=== PATIENT | female | born 1945 | race Caucasian/White ===

== ENCOUNTER 2021-08-19 09:00 | Inpatient (IN) ==
[2021-08-19] MEDS ORDERED: LACTATED RINGERS 1,000 ML IV SCH (11:30)
[2021-08-19] MEDS ORDERED: GLUCAGON 1 MG VIAL IM PRN (11:55)
[2021-08-19] MEDS ORDERED: NITROGLYCERIN SL 0.4 MG TABLET SL PRN (11:55)
[2021-08-19] MEDS ORDERED: CLORAZEPATE 3.75 MG TABLET PO PRN (11:55)
[2021-08-19] MEDS ORDERED: SODIUM CHLORIDE 0.9% 1,000 ML IV SCH (12:00)
[2021-08-19] MEDS ORDERED: DEXTROSE 10% 250 ML BAG IV PRN (12:10)
[2021-08-19] MEDS ORDERED: MORPHINE 4 MG/1 ML VIAL IV PRN (12:11)
[2021-08-19 14:50] LABS: Basophils # 0.1 10*3/uL (0.0-0.2); Eosinophils # 0.2 10*3/uL (0.0-0.87); Eosinophils % 2.6 % (0.00-10.9); Hematocrit 28.9 VOL% (35.7-47.0); Hemoglobin 9.1 GM/DL (12.0-16.0); Immature Granulocytes % 0.3 %; Immature Granulocytes Absolute 0.02 #; Lymphocytes # 2.2 10*3/uL (1.4-4.0); Lymphocytes % 32.5 % (21.3-54.2); Mean Corpuscular HGB Conc 31.5 GM/DL (32-36); Mean Corpuscular Volume 100.3 FL (87-102); Mean Platelet Volume 9.8 FL (9.6-12.0); Monocytes % 8.2 % (1.7-12.7); Neutrophils % 55.4 % (38.7-73.9); Platelet Count 155 T/CUMM (130-400); Red Blood Count 2.88 MC/CUMM (3.8-5.5); White Blood Count 6.8 T/CUMM (4-12)
[2021-08-19 15:11] LABS: Albumin 3.1 G/DL (3.4-5.0); Osmolality,Calculated 280.5 MOS/KG (273-304); Potassium 4.3 MMOL/L (3.5-5.1); Total Protein 7.1 G/DL (6.4-8.2)
[2021-08-19 15:16] LABS: Eosinophils 2 % (0-10); Lymphocytes 32 % (20-55); Segmented Neutrophils 58 % (50-85); Total Cells Counted 100
[2021-08-19 15:17] LABS: Platelet Estimate Adequate
[2021-08-19 15:18] LABS: Anisocytosis 1+
[2021-08-19] MEDS: INSULIN REGULAR 100 UNIT/ML SUBCUT SCH ×2 (15:42→20:50)
[2021-08-19] MEDS: CHLORHEXIDINE 4% SOLN 118 ML BOTTLE TOP SCH ×2 (16:50→20:50)
[2021-08-19] MEDS: CHLORHEXIDINE 0.12% ORAL RINSE 60 ML BOTTLE SWISH/SPIT SCH (20:50)
[2021-08-19] MEDS ORDERED: hydrALAZINE 20 MG/1 ML VIAL IV ONE (21:38)
[2021-08-20] MEDS ORDERED: hydrALAZINE 20 MG/1 ML VIAL IV ONE (00:18)
[2021-08-20] MEDS: CHLORHEXIDINE 4% SOLN 118 ML BOTTLE TOP SCH (04:15)
[2021-08-20] MEDS ORDERED: PAPAVERINE 60 MG/2 ML VIAL ONE (04:17)
[2021-08-20] MEDS ORDERED: VANCOMYCIN 1,000 MG VIAL ONE (04:17)
[2021-08-20] MEDS ORDERED: VANCOMYCIN 500 MG VIAL ONE (04:17)
[2021-08-20] MEDS ORDERED: CEFUROXIME INJ 1,500 MG in SODIUM CHLORIDE 0.9% 100 ML IV ONE (05:00)
[2021-08-20] MEDS ORDERED: DIAZEPAM 5 MG TABLET PO ONE (05:30)
[2021-08-20] MEDS ORDERED: FAMOTIDINE 20 MG TABLET PO ONE (05:30)
[2021-08-20] MEDS ORDERED: LACTATED RINGERS 1,000 ML IV SCH (05:30)
[2021-08-20] MEDS ORDERED: PHENYLEPHRINE DRIP 20 MG/250 ML PREMIX IV ONE (05:53)
[2021-08-20] MEDS ORDERED: SUFentanil 250 MCG/5 ML AMP ONE ×2 (05:53)
[2021-08-20] MEDS ORDERED: MIDAZOLAM 10 MG/2 ML VIAL ONE ×3 (05:53→08:27)
[2021-08-20] MEDS ORDERED: ETOMIDATE 40 MG/20 ML VIAL IV ONE (05:58)
[2021-08-20] MEDS ORDERED: VECURONIUM 10 MG VIAL IV ONE ×3 (05:59→09:32)
[2021-08-20] MEDS ORDERED: AMINOCAPROIC ACID 5,000 MG/20 ML VIAL ONE ×4 (06:00→06:01)
[2021-08-20] MEDS ORDERED: PHENYLEPHRINE DRIP 40 MG/250 ML PREMIX IV ONE (07:22)
[2021-08-20 07:32] LABS: ABG Base Excess 1.6 MMOL/L (-2.5-2.5); ABG HCO3 25.9 MMOL/L (20-26); ABG PCO2 32.7 MM HG (35-48); ABG PH 7.485 (7.35-7.45); ABG TCO2 22.6 MMOL/L (23-27); Glucose Heart Surgery 131 MG/DL (74-106); Hematocrit Heart Surgery 28.4 PERCENT (37-47); Hemoglobin Heart Surgery 9.2 G/DL (12.0-16.0); Ionized Calcium Arterial 1.17 MMOL/L (1.21-1.46); PCO2 Patient Temp Arterial 32.7 MMHG; PH Patient Temp Arterial 7.485; Patient Temperature 37 CELCIUS; Potassium Heart/CVR 3.6 MMOL/L (3.5-5.1); Sodium Heart/CVR 140 MMOL/L (135-145)
[2021-08-20 07:41] LABS: Bilirubin,Urine Negative (Negative); Blood, Urine Negative (Negative); Glucose,Urine (UA) Negative (Negative); Ketones,Urine 20 mg/dL (Negative); Mucus,Urine Occasional /LPF (Occasional); Nitrite,Urine Negative (Negative); Protein,Urine 100 MG/DL; RBC,Urine 4 /HPF (0-4); Squamous Epithelial Cell,Urine Occasional /HPF (0-10); Urine Appearance CLEAR (Clear); Urine Color Yellow (Yellow); Urine Specific Gravity 1.015 (1.001-1.035); Urine Urobilinogen < 2.0 EU/DL (<2.0)
[2021-08-20] MEDS ORDERED: NITROGLYCERIN DRIP 50 MG/250 ML BOTTLE IV ONE ×2 (07:44→11:46)
[2021-08-20] MEDS ORDERED: cefTRIAXone 1,000 MG VIAL ONE (07:52)
[2021-08-20] MEDS ORDERED: LIDOCAINE 2% 5 ML VIAL ONE ×2 (08:03→10:30)
[2021-08-20] MEDS ORDERED: SEVOFLURANE 1 UNIT/15 MINUTE INH ONE (08:27)
[2021-08-20] MEDS ORDERED: LACTATED RINGERS 1,000 ML IV ONE (08:35)
[2021-08-20] MEDS ORDERED: SODIUM CHLORIDE 0.9% 250 ML IV ONE (08:35)
[2021-08-20] MEDS ORDERED: SODIUM CHLORIDE 0.9% 1,000 ML IV ONE (08:35)
[2021-08-20] MEDS ORDERED: SODIUM CHLORIDE 0.9% 200 ML IV ONE (08:35)
[2021-08-20] MEDS ORDERED: HEPARIN/NACL 0.9% 2 UNITS/ML 1,000 UNIT/500 ML BAG IV ONE (08:41)
[2021-08-20 08:50] LABS: Hematocrit Heart Surgery 24.8 PERCENT (37-47); PCO2 Patient Temp Venous 28.9 MM HG; PH Patient Temp Venous 7.552; PO2 Patient Temp Venous 35.1 MM HG; Potassium Heart/CVR 4.5 MMOL/L (3.5-5.1); VBG Base Excess 3.4 MEQ/L (0-4); VBG HCO3 27.3 MEQ/L (24-28); VBG Oxygen Saturation 81.8 %; VBG PCO2 33.4 MMHG (41-51); VBG PH 7.506; VBG PO2 43.2 MMHG (17-40); VBG Total CO2 24.7 MMOL/L
[2021-08-20 09:21] LABS: Hematocrit Heart Surgery 25.8 PERCENT (37-47); Hemoglobin Heart Surgery 8.3 G/DL (12.0-16.0); PCO2 Patient Temp Venous 27.6 MM HG; PH Patient Temp Venous 7.561; PO2 Patient Temp Venous 35.1 MM HG; Potassium Heart/CVR 4.3 MMOL/L (3.5-5.1); VBG HCO3 26.9 MEQ/L (24-28); VBG Oxygen Saturation 81.9 %; VBG PCO2 31.9 MMHG (41-51); VBG PH 7.515; VBG PO2 43.2 MMHG (17-40); VBG Total CO2 23.9 MMOL/L
[2021-08-20] MEDS ORDERED: CALCIUM CHLORIDE 1,000 MG/10 ML VIAL IV ONE (09:21)
[2021-08-20 09:53] LABS: Hematocrit Heart Surgery 28.1 PERCENT (37-47); PH Patient Temp Venous 7.531; PO2 Patient Temp Venous 38.1 MM HG; Potassium Heart/CVR 4.4 MMOL/L (3.5-5.1); VBG Base Excess 3.5 MEQ/L (0-4); VBG HCO3 27.2 MEQ/L (24-28); VBG PH 7.531; VBG PO2 38.1 MMHG (17-40); VBG Total CO2 23.9 MMOL/L
[2021-08-20] MEDS ORDERED: AMIODARONE 150 MG/3 ML VIAL ONE (10:25)
[2021-08-20 10:27] LABS: ABG HCO3 26.3 MMOL/L (20-26); ABG PCO2 31.6 MM HG (35-48); ABG PH 7.502 (7.35-7.45); ABG TCO2 22.4 MMOL/L (23-27); Glucose Heart Surgery 237 MG/DL (74-106); Hematocrit Heart Surgery 30.9 PERCENT (37-47); Ionized Calcium Arterial 1.26 MMOL/L (1.21-1.46); PCO2 Patient Temp Arterial 31.6 MMHG; PH Patient Temp Arterial 7.502; Patient Temperature 37 CELCIUS; Potassium Heart/CVR 3.8 MMOL/L (3.5-5.1); Sodium Heart/CVR 133 MMOL/L (135-145)
[2021-08-20] MEDS ORDERED: DEXTROSE 5% KCL 20 MEQ 20 MEQ/1,000 ML BAG IV ONE (10:30)
[2021-08-20] MEDS ORDERED: methylPREDNISolone SOD SUC 1,000 MG/8 ML VIAL ONE (10:30)
[2021-08-20] MEDS ORDERED: PROTAMINE SULFATE 250 MG/25 ML VIAL IV ONE (10:30)
[2021-08-20] MEDS ORDERED: ALBUMIN 25% 25 GM/100 ML VIAL IV ONE (10:30)
[2021-08-20] MEDS ORDERED: MANNITOL 100 GM/500 ML BAG IV ONE (10:30)
[2021-08-20] MEDS ORDERED: MAGNESIUM SULFATE 5 GM/10 ML VIAL IV ONE (10:30)
[2021-08-20] MEDS ORDERED: SODIUM BICARBONATE 50 MEQ/50 ML VIAL IV ONE (10:31)
[2021-08-20] MEDS ORDERED: FUROSEMIDE 20 MG/2 ML VIAL ONE (10:31)
[2021-08-20] MEDS ORDERED: HEPARIN 10,000 UNIT/10 ML VIAL ONE (10:31)
[2021-08-20] MEDS ORDERED: DEXTROSE 10% 250 ML BAG IV PRN ×2 (10:52)
[2021-08-20] MEDS ORDERED: CHLORHEXIDINE 4% SOLN 118 ML BOTTLE TOP PRN (10:52)
[2021-08-20] MEDS ORDERED: ONDANSETRON 4 MG/2 ML VIAL IV PRN (10:52)
[2021-08-20] MEDS ORDERED: POTASSIUM CHLORIDE RIDER 10 MEQ/100 ML PREMIX IV PRN (10:52)
[2021-08-20] MEDS ORDERED: LACTATED RINGERS 250 ML IV PRN (10:52)
[2021-08-20] MEDS ORDERED: VECURONIUM 10 MG VIAL IV PRN ×2 (10:52)
[2021-08-20] MEDS ORDERED: MAGNESIUM SULF RIDER 4 GM/100 ML PREMIX IV PRN (10:52)
[2021-08-20] MEDS ORDERED: NITROPRUSSIDE 100 MG in DEXTROSE 5% 250 ML IV PRN (10:52)
[2021-08-20] MEDS ORDERED: CALCIUM CHLORIDE 1,000 MG/10 ML SYRINGE IV PRN (10:52)
[2021-08-20] MEDS ORDERED: ACETAMINOPHEN 650 MG SUPP RECTAL PRN (10:52)
[2021-08-20] MEDS ORDERED: MIDAZOLAM 10 MG/2 ML VIAL IV PRN (10:52)
[2021-08-20] MEDS ORDERED: INSULIN REGULAR 100 UNIT/ML IV ONE (10:52)
[2021-08-20] MEDS ORDERED: INSULIN REGULAR 100 UNIT/ML IV PRN (10:52)
[2021-08-20] MEDS ORDERED: MAGNESIUM SULF RIDER 2 GM/50 ML PREMIX IV PRN (10:52)
[2021-08-20] MEDS ORDERED: INSULIN REGULAR DRIP 100 ML IV SCH (11:00)
[2021-08-20] MEDS ORDERED: PROTAMINE SULFATE 50 MG/5 ML VIAL IV ONE (11:08)
[2021-08-20] MEDS: SODIUM CHLORIDE 0.45% 1,000 ML IV SCH ×2 (11:31)
[2021-08-20 11:33] LABS: Basophils % 0.4 % (0.0-0.8); Eosinophils % 0.2 % (0.00-10.9); Hemoglobin 10.8 GM/DL (12.0-16.0); Immature Granulocytes % 0.6 %; Immature Granulocytes Absolute 0.06 #; Lymphocytes # 0.7 10*3/uL (1.4-4.0); Lymphocytes % 6.8 % (21.3-54.2); Mean Corpuscular HGB Conc 33.8 GM/DL (32-36); Mean Corpuscular Volume 92.5 FL (87-102); Mean Platelet Volume 10.2 FL (9.6-12.0); Platelet Count 115 T/CUMM (130-400); Red Blood Count 3.46 MC/CUMM (3.8-5.5); Red Cell Distribution Width 13.8 % (9.3-17.3); White Blood Count 9.5 T/CUMM (4-12)
[2021-08-20 11:36] LABS: ABG HCO3 23.6 MMOL/L (20-26); ABG Oxygen Saturation 99.2 % (95-100); ABG PCO2 27.6 MM HG (35-48); ABG PH 7.549 (7.35-7.45); ABG PO2 470.2 MM HG (80-95); ABG TCO2 24.4 MMOL/L (23-27); Glucose Heart Surgery 204 MG/DL (74-106); Hemoglobin Heart Surgery 11.5 G/DL (12.0-16.0); Potassium Heart/CVR 3.5 MMOL/L (3.5-5.1)
[2021-08-20 11:42] LABS: INR 1.1; PT Patient Result 12.8 SECS (10.5-12.0)
[2021-08-20] MEDS: POTASSIUM CHLORIDE RIDER 20 MEQ/100 ML PREMIX IV PRN ×3 (11:48→22:40)
[2021-08-20 12:08] LABS: CKMB % 8.6 %
[2021-08-20 12:13] LABS: High Sensitive Troponin I* 9187.4 ng/L (0-54)
[2021-08-20 12:17] LABS: Albumin 2.6 G/DL (3.4-5.0); Bilirubin,Total 0.6 MG/DL (0.20-1.00); Osmolality,Calculated 277.1 MOS/KG (273-304); Potassium 3.6 MMOL/L (3.5-5.1); Total Protein 5.8 G/DL (6.4-8.2)
[2021-08-20 12:44] LABS: Lymphocytes 5 % (20-55); Poikilocytosis Few; Segmented Neutrophils 92 % (50-85); Total Cells Counted 100
[2021-08-20 12:45] LABS: Burr Cells Few; Platelet Estimate Adequate
[2021-08-20] MEDS: LACTATED RINGERS 1,000 ML IV PRN ×4 (13:00→18:21)
[2021-08-20 13:34] LABS: ABG Base Excess -0.4 MMOL/L (-2.5-2.5); ABG HCO3 22.6 MMOL/L (20-26); ABG PCO2 31.2 MM HG (35-48); ABG PH 7.477 (7.35-7.45); ABG PO2 278.3 MM HG (80-95); ABG TCO2 23.5 MMOL/L (23-27); Glucose Heart Surgery 125 MG/DL (74-106); Potassium Heart/CVR 3.5 MMOL/L (3.5-5.1)
[2021-08-20] MEDS ORDERED: NITROGLYCERIN DRIP 50 MG/250 ML BOTTLE IV PRN (13:48)
[2021-08-20] MEDS: ALBUMIN 5% 12.5 GM/250 ML VIAL IV PRN ×2 (14:00→14:16)
[2021-08-20 14:46] LABS: ABG Base Excess -0.4 MMOL/L (-2.5-2.5); ABG HCO3 24.1 MMOL/L (20-26); ABG Oxygen Saturation 99.8 % (95-100); ABG PCO2 32.9 MM HG (35-48); ABG PH 7.453 (7.35-7.45); Glucose Heart Surgery 98 MG/DL (74-106); Hematocrit Heart Surgery 29.2 PERCENT (37-47); Hemoglobin Heart Surgery 9.4 G/DL (12.0-16.0); Potassium Heart/CVR 4.2 MMOL/L (3.5-5.1)
[2021-08-20] MEDS: MIDAZOLAM 2 MG/2 ML VIAL IV PRN ×2 (15:55→17:41)
[2021-08-20] MEDS: INSULIN REGULAR 100 UNIT/ML SUBCUT SCH (15:58)
[2021-08-20] MEDS: CHLORHEXIDINE 0.12% ORAL RINSE 60 ML BOTTLE SWISH/SPIT SCH ×2 (15:58→20:44)
[2021-08-20] MEDS: PHENYLEPHRINE DRIP 40 MG/250 ML PREMIX IV PRN (16:10)
[2021-08-20 16:32] LABS: ABG Base Excess -1.1 MMOL/L (-2.5-2.5); ABG HCO3 22.3 MMOL/L (20-26); ABG Oxygen Saturation 98.3 % (95-100); ABG PH 7.461 (7.35-7.45); ABG TCO2 23.3 MMOL/L (23-27); Glucose Heart Surgery 119 MG/DL (74-106); Hemoglobin Heart Surgery 9.3 G/DL (12.0-16.0); Potassium Heart/CVR 4.2 MMOL/L (3.5-5.1)
[2021-08-20 16:33] LABS: VBG Base Excess -0.6 MEQ/L (0-4); VBG HCO3 23.3 MEQ/L (24-28); VBG PCO2 40.2 MMHG (41-51); VBG PH 7.389; VBG PO2 32.1 MMHG (17-40); VBG Total CO2 22.6 MMOL/L
[2021-08-20] MEDS: SODIUM CHLORIDE 0.9% 1,000 ML IV SCH (16:58)
[2021-08-20] MEDS: MORPHINE 10 MG/1 ML VIAL IV PRN (17:22)
[2021-08-20 18:03] LABS: ABG Base Excess -5.3 MMOL/L (-2.5-2.5); ABG Oxygen Saturation 98.6 % (95-100); ABG PCO2 38.2 MM HG (35-48); ABG PH 7.336 (7.35-7.45); ABG PO2 172.4 MM HG (80-95); ABG TCO2 21.1 MMOL/L (23-27); Glucose Heart Surgery 170 MG/DL (74-106); Hemoglobin Heart Surgery 12.1 G/DL (12.0-16.0); Potassium Heart/CVR 4.4 MMOL/L (3.5-5.1)
[2021-08-20] MEDS: CEFUROXIME INJ 1,500 MG in SODIUM CHLORIDE 0.9% 100 ML IV SCH (18:21)
[2021-08-20] MEDS ORDERED: FUROSEMIDE 40 MG/4 ML VIAL IV ONE ×3 (19:38→23:59)
[2021-08-20 19:45] LABS: ABG Base Excess -6.1 MMOL/L (-2.5-2.5); ABG HCO3 19.5 MMOL/L (20-26); ABG Oxygen Saturation 99.2 % (95-100); ABG PCO2 36.3 MM HG (35-48); ABG PH 7.331 (7.35-7.45); ABG TCO2 17.1 MMOL/L (23-27); Glucose Heart Surgery 171 MG/DL (74-106); Hematocrit Heart Surgery 36.9 PERCENT (37-47); Potassium Heart/CVR 4.4 MMOL/L (3.5-5.1)
[2021-08-20 20:21] LABS: CKMB % 8.1 %
[2021-08-20 20:25] LABS: High Sensitive Troponin I* 66623.2 ng/L (0-54)
[2021-08-20] MEDS ORDERED: DOBUTamine 500 MG/250 ML PREMIX IV PRN (20:55)
[2021-08-20 21:34] LABS: ABG Base Excess -4.9 MMOL/L (-2.5-2.5); ABG HCO3 20.7 MMOL/L (20-26); ABG Oxygen Saturation 97.8 % (95-100); ABG PCO2 40.5 MM HG (35-48); ABG PH 7.327 (7.35-7.45); ABG PO2 119.3 MM HG (80-95); Glucose Heart Surgery 161 MG/DL (74-106); Hemoglobin Heart Surgery 12.2 G/DL (12.0-16.0)
[2021-08-20] MEDS ORDERED: FUROSEMIDE INJ 100 MG in SODIUM CHLORIDE 0.9% 90 ML IV SCH (22:00)
[2021-08-20 22:36] LABS: ABG Base Excess -2.7 MMOL/L (-2.5-2.5); ABG HCO3 22.3 MMOL/L (20-26); ABG Oxygen Saturation 98.3 % (95-100); ABG PCO2 39.4 MM HG (35-48); ABG PO2 143.5 MM HG (80-95); ABG TCO2 23.5 MMOL/L (23-27); Glucose Heart Surgery 159 MG/DL (74-106); Hemoglobin Heart Surgery 11.2 G/DL (12.0-16.0); Potassium Heart/CVR 4.4 MMOL/L (3.5-5.1)
[2021-08-20 23:32] LABS: ABG Base Excess -2.1 MMOL/L (-2.5-2.5); ABG Oxygen Saturation 96.6 % (95-100); ABG PCO2 40.4 MM HG (35-48); ABG PH 7.373 (7.35-7.45); ABG PO2 95.1 MM HG (80-95); ABG TCO2 24.2 MMOL/L (23-27); Glucose Heart Surgery 156 MG/DL (74-106)
[2021-08-21 01:21] LABS: ABG Base Excess -2.3 MMOL/L (-2.5-2.5); ABG HCO3 22.5 MMOL/L (20-26); ABG Oxygen Saturation 97.9 % (95-100); ABG PCO2 45.1 MM HG (35-48); ABG PH 7.329 (7.35-7.45); ABG TCO2 21.7 MMOL/L (23-27); Glucose Heart Surgery 153 MG/DL (74-106); Hematocrit Heart Surgery 31.4 PERCENT (37-47); Hemoglobin Heart Surgery 10.2 G/DL (12.0-16.0); Potassium Heart/CVR 4.7 MMOL/L (3.5-5.1)
[2021-08-21] MEDS ORDERED: FUROSEMIDE 40 MG/4 ML VIAL IV ONE ×2 (02:00→14:13)
[2021-08-21] MEDS: LACTATED RINGERS 1,000 ML IV PRN (03:29)
[2021-08-21 04:01] LABS: ABG Base Excess -1.5 MMOL/L (-2.5-2.5); ABG HCO3 23.7 MMOL/L (20-26); ABG Oxygen Saturation 94.9 % (95-100); ABG PCO2 41.8 MM HG (35-48); ABG PH 7.372 (7.35-7.45); ABG PO2 80.1 MM HG (80-95); Glucose Heart Surgery 130 MG/DL (74-106); Hemoglobin Heart Surgery 10.3 G/DL (12.0-16.0); Potassium Heart/CVR 4.3 MMOL/L (3.5-5.1)
[2021-08-21 04:09] LABS: Basophils % 0.1 % (0.0-0.8); Hematocrit 29.1 VOL% (35.7-47.0); Hemoglobin 9.6 GM/DL (12.0-16.0); Immature Granulocytes % 0.6 %; Immature Granulocytes Absolute 0.06 #; Mean Corpuscular Volume 93.3 FL (87-102); Mean Platelet Volume 10.9 FL (9.6-12.0); Monocytes % 9.3 % (1.7-12.7); Platelet Count 80 T/CUMM (130-400); Red Blood Count 3.12 MC/CUMM (3.8-5.5); Red Cell Distribution Width 15.9 % (9.3-17.3); White Blood Count 10.9 T/CUMM (4-12)
[2021-08-21 04:33] LABS: Hypochromia Slight; Lymphocytes 10 % (20-55); Microcytosis Slight; Platelet Estimate Decreased; Segmented Neutrophils 84 % (50-85); Total Cells Counted 100
[2021-08-21 04:39] LABS: Albumin 2.6 G/DL (3.4-5.0); Bilirubin,Direct 0.13 MG/DL (0.0-0.20); Bilirubin,Total 0.5 MG/DL (0.20-1.00); Calcium 7.8 MG/DL (8.5-10.1); Osmolality,Calculated 281.5 MOS/KG (273-304); Potassium 4.4 MMOL/L (3.5-5.1); Total Protein 5.1 G/DL (6.4-8.2)
[2021-08-21] MEDS: POTASSIUM CHLORIDE RIDER 20 MEQ/100 ML PREMIX IV PRN (04:56)
[2021-08-21 05:23] LABS: CKMB % 11.9 %
[2021-08-21 05:27] LABS: High Sensitive Troponin I* > 125000 ng/L (0-54)
[2021-08-21] MEDS: CEFUROXIME INJ 1,500 MG in SODIUM CHLORIDE 0.9% 100 ML IV SCH ×3 (05:30→18:40)
[2021-08-21] MEDS: MORPHINE 10 MG/1 ML VIAL IV PRN (05:47)
[2021-08-21] MEDS: INSULIN REGULAR 100 UNIT/ML SUBCUT SCH ×4 (08:40→21:14)
[2021-08-21] MEDS ORDERED: LEVOFLOXACIN INJ 500 MG/100 ML PREMIX IV SCH (09:00)
[2021-08-21] MEDS: CHLORHEXIDINE 0.12% ORAL RINSE 60 ML BOTTLE SWISH/SPIT SCH ×2 (09:25→21:14)
[2021-08-21] MEDS: ASPIRIN EC 81 MG TABLET PO SCH (09:25)
[2021-08-21] MEDS: SODIUM CHLORIDE 0.45% 1,000 ML IV SCH ×2 (11:00)
[2021-08-21 11:59] LABS: High Sensitive Troponin I* > 125000 ng/L (0-54)
[2021-08-21] MEDS ORDERED: AMIODARONE INJ 150 MG in DEXTROSE 5% 100 ML IV ONE (12:28)
[2021-08-21] MEDS ORDERED: AMIODARONE INJ 450 MG in DEXTROSE 5% 241 ML IV SCH ×2 (12:30→19:30)
[2021-08-21] MEDS: PHENYLEPHRINE DRIP 40 MG/250 ML PREMIX IV PRN ×2 (13:30→18:40)
[2021-08-21] MEDS: SODIUM CHLORIDE 0.9% 1,000 ML IV SCH (16:30)
[2021-08-21 18:39] LABS: CKMB % 12.9 %; High Sensitive Troponin I* > 125000 ng/L (0-54)
[2021-08-22] MEDS ORDERED: FUROSEMIDE 40 MG/4 ML VIAL IV ONE
[2021-08-22] MEDS: PHENYLEPHRINE DRIP 40 MG/250 ML PREMIX IV PRN (00:20)
[2021-08-22 05:18] LABS: Basophils % 0.1 % (0.0-0.8); Hematocrit 27.5 VOL% (35.7-47.0); Hemoglobin 8.9 GM/DL (12.0-16.0); Immature Granulocytes % 0.7 %; Immature Granulocytes Absolute 0.07 #; Lymphocytes # 0.8 10*3/uL (1.4-4.0); Mean Corpuscular HGB Conc 32.4 GM/DL (32-36); Mean Corpuscular Volume 94.2 FL (87-102); Mean Platelet Volume 11.1 FL (9.6-12.0); Monocytes % 11.4 % (1.7-12.7); Neutrophils % 79.8 % (38.7-73.9); Platelet Count 66 T/CUMM (130-400); Red Blood Count 2.92 MC/CUMM (3.8-5.5); Red Cell Distribution Width 15.9 % (9.3-17.3); White Blood Count 9.7 T/CUMM (4-12)
[2021-08-22 05:34] LABS: Albumin 2.2 G/DL (3.4-5.0); Bilirubin,Direct 0.11 MG/DL (0.0-0.20); Bilirubin,Total 1.6 MG/DL (0.20-1.00); Calcium 7.6 MG/DL (8.5-10.1); Osmolality,Calculated 282.8 MOS/KG (273-304); Potassium 3.9 MMOL/L (3.5-5.1); Total Protein 5.4 G/DL (6.4-8.2)
[2021-08-22 05:44] LABS: Hypochromia 1+; Lymphocytes 3 % (20-55); Microcytosis 1+; Platelet Estimate Decreased; Segmented Neutrophils 90 % (50-85); Total Cells Counted 100
[2021-08-22] MEDS: POTASSIUM CHLORIDE RIDER 20 MEQ/100 ML PREMIX IV PRN ×2 (06:15→06:49)
[2021-08-22] MEDS: INSULIN REGULAR 100 UNIT/ML SUBCUT SCH ×4 (08:30→20:30)
[2021-08-22] MEDS: AMIODARONE 200 MG TABLET PO SCH ×2 (08:43→20:30)
[2021-08-22] MEDS: ASPIRIN EC 81 MG TABLET PO SCH (08:43)
[2021-08-22] MEDS: CHLORHEXIDINE 0.12% ORAL RINSE 60 ML BOTTLE SWISH/SPIT SCH ×3 (08:43→20:30)
[2021-08-22] MEDS: ALBUMIN 5% 12.5 GM/250 ML VIAL IV PRN (08:43)
[2021-08-22] MEDS ORDERED: LEVOFLOXACIN INJ 250 MG/50 ML PREMIX IV SCH (09:00)
[2021-08-22] MEDS ORDERED: ZALEPLON 5 MG CAPSULE PO PRN (09:08)
[2021-08-22] MEDS ORDERED: MAGNESIUM SULF RIDER 2 GM/50 ML PREMIX IV PRN (09:08)
[2021-08-22] MEDS ORDERED: ACETAMINOPHEN 325 MG TABLET PO PRN (09:08)
[2021-08-22] MEDS ORDERED: ONDANSETRON 4 MG/2 ML VIAL IV PRN (09:08)
[2021-08-22] MEDS ORDERED: MAGNESIUM SULF RIDER 4 GM/100 ML PREMIX IV PRN (09:08)
[2021-08-22] MEDS ORDERED: oxyCODONE/ACETAMINOPHEN 5-325 MG TABLET PO PRN (09:08)
[2021-08-22] MEDS ORDERED: SODIUM CHLOR 0.45% KCL 20 MEQ 20 MEQ/1,000 ML BAG IV SCH (09:08)
[2021-08-22] MEDS ORDERED: MAGNESIUM HYDROXIDE SUSP 30 ML UDCUP PO PRN (09:08)
[2021-08-22] MEDS ORDERED: DEXTROSE 10% 250 ML BAG IV PRN (09:08)
[2021-08-22] MEDS ORDERED: ALUMINUM/MAGNES/SIMETH MAX STR 30 ML UDCUP PO PRN (09:08)
[2021-08-22] MEDS ORDERED: GLUCAGON 1 MG VIAL IM PRN (09:08)
[2021-08-22] MEDS ORDERED: CARBOXYMETHYLCELLULOSE 1% OPH SOLN BOTH EYES PRN (09:18)
[2021-08-22] MEDS ORDERED: ALBUMIN 5% 12.5 GM/250 ML VIAL IV ONE (09:27)
[2021-08-22] MEDS: FERROUS SULFATE 325 MG TABLET PO SCH (09:45)
[2021-08-22] MEDS: GLIMEPIRIDE 2 MG TABLET PO SCH (09:45)
[2021-08-22] MEDS: DOCUSATE SODIUM 100 MG CAPSULE PO SCH (09:45)
[2021-08-22] MEDS: PANTOPRAZOLE 40 MG TABLET PO SCH (09:50)
[2021-08-22] MEDS: carBAMazepine 200 MG TABLET PO SCH (20:30)
[2021-08-23 05:05] LABS: Albumin 2.4 G/DL (3.4-5.0); Bilirubin,Direct 0.18 MG/DL (0.0-0.20); Bilirubin,Total 0.7 MG/DL (0.20-1.00); Osmolality,Calculated 280.7 MOS/KG (273-304); Potassium 4.1 MMOL/L (3.5-5.1); Total Protein 5.9 G/DL (6.4-8.2)
[2021-08-23 05:13] LABS: Basophils % 0.2 % (0.0-0.8); Hematocrit 29.3 VOL% (35.7-47.0); Hemoglobin 9.4 GM/DL (12.0-16.0); Immature Granulocytes Absolute 0.13 #; Lymphocytes # 0.9 10*3/uL (1.4-4.0); Lymphocytes % 6.9 % (21.3-54.2); Mean Corpuscular HGB Conc 32.1 GM/DL (32-36); Mean Corpuscular Volume 95.8 FL (87-102); Mean Platelet Volume 12.2 FL (9.6-12.0); Monocytes % 9.4 % (1.7-12.7); Neutrophils % 82.5 % (38.7-73.9); Platelet Count 83 T/CUMM (130-400); Red Blood Count 3.06 MC/CUMM (3.8-5.5); Red Cell Distribution Width 15.7 % (9.3-17.3); White Blood Count 13.3 T/CUMM (4-12)
[2021-08-23 05:47] LABS: Albumin 2.4 G/DL (3.4-5.0); Bilirubin,Direct 0.19 MG/DL (0.0-0.20); Bilirubin,Indirect 0.2 MG/DL (0.0-1.0); Bilirubin,Total 0.4 MG/DL (0.20-1.00); High Sensitive Troponin I* 93195.9 ng/L (0-54); Total Protein 5.8 G/DL (6.4-8.2)
[2021-08-23] MEDS ORDERED: FUROSEMIDE 40 MG/4 ML VIAL IV ONE (06:00)
[2021-08-23 06:20] LABS: Band Neutrophils 1 % (0-10); Hypochromia Slight; Lymphocytes 8 % (20-55); Platelet Estimate Decreased; Segmented Neutrophils 84 % (50-85); Total Cells Counted 100
[2021-08-23] MEDS: GLIMEPIRIDE 2 MG TABLET PO SCH (09:34)
[2021-08-23] MEDS: INSULIN REGULAR 100 UNIT/ML SUBCUT SCH ×4 (09:34→20:55)
[2021-08-23] MEDS: FUROSEMIDE 40 MG/4 ML VIAL IV SCH ×2 (10:09→19:09)
[2021-08-23] MEDS: carBAMazepine 200 MG TABLET PO SCH ×2 (10:13→20:56)
[2021-08-23] MEDS: CETIRIZINE 10 MG TABLET PO SCH (10:13)
[2021-08-23] MEDS: DOCUSATE SODIUM 100 MG CAPSULE PO SCH (10:13)
[2021-08-23] MEDS: ASPIRIN EC 81 MG TABLET PO SCH (10:13)
[2021-08-23] MEDS: PANTOPRAZOLE 40 MG TABLET PO SCH (10:13)
[2021-08-23] MEDS: AMIODARONE 200 MG TABLET PO SCH ×2 (10:13→20:56)
[2021-08-23] MEDS: LEVOFLOXACIN 250 MG TABLET PO SCH (10:14)
[2021-08-23] MEDS: CHLORHEXIDINE 0.12% ORAL RINSE 60 ML BOTTLE SWISH/SPIT SCH ×2 (10:14→20:56)
[2021-08-23] MEDS: FERROUS SULFATE 325 MG TABLET PO SCH (10:14)
[2021-08-24 05:20] LABS: Basophils % 0.2 % (0.0-0.8); Eosinophils % 0.2 % (0.00-10.9); Hematocrit 27.8 VOL% (35.7-47.0); Hemoglobin 8.8 GM/DL (12.0-16.0); Immature Granulocytes % 0.6 %; Immature Granulocytes Absolute 0.06 #; Lymphocytes # 0.9 10*3/uL (1.4-4.0); Lymphocytes % 9.6 % (21.3-54.2); Mean Corpuscular HGB Conc 31.7 GM/DL (32-36); Mean Corpuscular Volume 96.5 FL (87-102); Mean Platelet Volume 11.9 FL (9.6-12.0); Monocytes % 10.5 % (1.7-12.7); NRBC # 0.02 10*3/uL; Neutrophils % 78.9 % (38.7-73.9); Platelet Count 104 T/CUMM (130-400); Red Blood Count 2.88 MC/CUMM (3.8-5.5); Red Cell Distribution Width 15.5 % (9.3-17.3); White Blood Count 9.7 T/CUMM (4-12)
[2021-08-24 05:45] LABS: Hypochromia 1+; Lymphocytes 10 % (20-55); Microcytosis 1+; Platelet Estimate Decreased; Segmented Neutrophils 80 % (50-85); Total Cells Counted 100
[2021-08-24 05:52] LABS: Albumin 2.3 G/DL (3.4-5.0); Bilirubin,Direct 0.19 MG/DL (0.0-0.20); Bilirubin,Indirect 0.3 MG/DL (0.0-1.0); Bilirubin,Total 0.5 MG/DL (0.20-1.00); CKMB % 3.2 %; Calcium 7.9 MG/DL (8.5-10.1); Osmolality,Calculated 288.4 MOS/KG (273-304); Potassium 3.2 MMOL/L (3.5-5.1); Total Protein 5.7 G/DL (6.4-8.2)
[2021-08-24] MEDS: INSULIN REGULAR 100 UNIT/ML SUBCUT SCH ×4 (08:24→21:02)
[2021-08-24] MEDS ORDERED: POTASSIUM CHLORIDE 20 MEQ TABLET PO ONE (09:16)
[2021-08-24] MEDS ORDERED: SODIUM CHLORIDE 0.9% 1,000 ML IV SCH (09:30)
[2021-08-24] MEDS: FUROSEMIDE 40 MG/4 ML VIAL IV SCH (10:03)
[2021-08-24] MEDS: LEVOFLOXACIN 250 MG TABLET PO SCH (10:11)
[2021-08-24] MEDS: PANTOPRAZOLE 40 MG TABLET PO SCH (10:12)
[2021-08-24] MEDS: ASPIRIN EC 81 MG TABLET PO SCH (10:12)
[2021-08-24] MEDS: GLIMEPIRIDE 2 MG TABLET PO SCH (10:12)
[2021-08-24] MEDS: AMIODARONE 200 MG TABLET PO SCH ×2 (10:12→20:59)
[2021-08-24] MEDS: CETIRIZINE 10 MG TABLET PO SCH (10:13)
[2021-08-24] MEDS: DOCUSATE SODIUM 100 MG CAPSULE PO SCH (10:13)
[2021-08-24] MEDS: CHLORHEXIDINE 0.12% ORAL RINSE 60 ML BOTTLE SWISH/SPIT SCH ×2 (10:13→21:03)
[2021-08-24] MEDS: carBAMazepine 200 MG TABLET PO SCH ×2 (10:13→20:59)
[2021-08-24] MEDS: FERROUS SULFATE 325 MG TABLET PO SCH (10:13)
[2021-08-24] MEDS: ALBUTEROL/IPRATROPIUM 3 ML NEB RESP TX SCH ×2 (12:30→19:48)
[2021-08-25] MEDS: ALBUTEROL/IPRATROPIUM 3 ML NEB RESP TX SCH ×4 (00:33→19:50)
[2021-08-25 04:58] LABS: Basophils % 0.1 % (0.0-0.8); Eosinophils % 0.4 % (0.00-10.9); Hematocrit 27.7 VOL% (35.7-47.0); Hemoglobin 8.8 GM/DL (12.0-16.0); Immature Granulocytes % 0.9 %; Immature Granulocytes Absolute 0.08 #; Lymphocytes # 0.8 10*3/uL (1.4-4.0); Mean Corpuscular HGB Conc 31.8 GM/DL (32-36); Mean Corpuscular Volume 97.2 FL (87-102); Mean Platelet Volume 11.9 FL (9.6-12.0); Monocytes % 13.1 % (1.7-12.7); NRBC # 0.05 10*3/uL; Neutrophils % 76.5 % (38.7-73.9); Platelet Count 111 T/CUMM (130-400); Red Blood Count 2.85 MC/CUMM (3.8-5.5); Red Cell Distribution Width 15.7 % (9.3-17.3); White Blood Count 9.1 T/CUMM (4-12)
[2021-08-25 05:18] LABS: Albumin 2.3 G/DL (3.4-5.0); Bilirubin,Total 0.8 MG/DL (0.20-1.00); Calcium 7.7 MG/DL (8.5-10.1); Potassium 3.7 MMOL/L (3.5-5.1); Total Protein 5.5 G/DL (6.4-8.2)
[2021-08-25 05:22] LABS: Eosinophils 1 % (0-10); Hypochromia 1+; Lymphocytes 4 % (20-55); Microcytosis 1+; Ovalocytes Slight; Segmented Neutrophils 84 % (50-85); Total Cells Counted 100
[2021-08-25 05:23] LABS: Platelet Estimate Decreased
[2021-08-25 05:51] LABS: CKMB % 2.2 %
[2021-08-25 05:53] LABS: High Sensitive Troponin I* 55648.8 ng/L (0-54)
[2021-08-25] MEDS: FERROUS SULFATE 325 MG TABLET PO SCH (10:50)
[2021-08-25] MEDS: LEVOFLOXACIN 250 MG TABLET PO SCH (10:51)
[2021-08-25] MEDS: carBAMazepine 200 MG TABLET PO SCH ×2 (10:51→22:43)
[2021-08-25] MEDS: AMIODARONE 200 MG TABLET PO SCH (10:51)
[2021-08-25] MEDS: ASPIRIN EC 81 MG TABLET PO SCH (10:51)
[2021-08-25] MEDS: DOCUSATE SODIUM 100 MG CAPSULE PO SCH (10:51)
[2021-08-25] MEDS: INSULIN REGULAR 100 UNIT/ML SUBCUT SCH ×4 (10:52→22:41)
[2021-08-25] MEDS: PANTOPRAZOLE 40 MG TABLET PO SCH (10:52)
[2021-08-25] MEDS: CETIRIZINE 10 MG TABLET PO SCH (10:52)
[2021-08-25] MEDS: GLIMEPIRIDE 2 MG TABLET PO SCH (10:52)
[2021-08-25] MEDS: CHLORHEXIDINE 0.12% ORAL RINSE 60 ML BOTTLE SWISH/SPIT SCH ×2 (10:52→22:41)
[2021-08-25] MEDS ORDERED: CEFEPIME 2,000 MG in SODIUM CHLORIDE 0.9% 100 ML IV SCH (13:00)
[2021-08-25] MEDS: methylPREDNISolone SOD SUC 40 MG/1 ML VIAL IV SCH ×2 (13:34→22:43)
[2021-08-25] MEDS: CEFEPIME 1,000 MG in SODIUM CHLORIDE 0.9% 100 ML IV SCH (16:13)
[2021-08-26] MEDS: CEFEPIME 1,000 MG in SODIUM CHLORIDE 0.9% 100 ML IV SCH ×3 (00:34→15:50)
[2021-08-26] MEDS: ALBUTEROL/IPRATROPIUM 3 ML NEB RESP TX SCH ×4 (01:06→21:03)
[2021-08-26 05:06] LABS: Basophils % 0.1 % (0.0-0.8); Hematocrit 27.9 VOL% (35.7-47.0); Hemoglobin 8.9 GM/DL (12.0-16.0); Immature Granulocytes % 0.8 %; Immature Granulocytes Absolute 0.07 #; Lymphocytes # 0.3 10*3/uL (1.4-4.0); Mean Corpuscular HGB Conc 31.9 GM/DL (32-36); Mean Corpuscular Volume 98.2 FL (87-102); Mean Platelet Volume 11.8 FL (9.6-12.0); Monocytes % 5.9 % (1.7-12.7); NRBC # 0.09 10*3/uL; Neutrophils % 90.2 % (38.7-73.9); Platelet Count 120 T/CUMM (130-400); Red Blood Count 2.84 MC/CUMM (3.8-5.5); White Blood Count 8.6 T/CUMM (4-12)
[2021-08-26] MEDS: methylPREDNISolone SOD SUC 40 MG/1 ML VIAL IV SCH ×3 (05:10→22:34)
[2021-08-26 05:33] LABS: Hypochromia 1+; Lymphocytes 2 % (20-55); Microcytosis 1+; Nucleated Red Blood Cells 1 (0-5); Platelet Estimate Normal; Segmented Neutrophils 94 % (50-85); Total Cells Counted 100
[2021-08-26 05:41] LABS: Alanine Aminotransferase 68 U/L (13-56); Albumin 2.2 G/DL (3.4-5.0); Alkaline Phosphatase 89 U/L (45-117); Aspartate Amino Transferase 79 U/L (0-37); Bilirubin,Indirect 0.3 MG/DL (0.0-1.0); Blood Urea Nitrogen 58 MG/DL (7-18); Calcium 8.7 MG/DL (8.5-10.1); Carbon Dioxide 29 MMOL/L (21-32); Estimated Glom Filtration Rate 32 ML/MIN; Glucose 137 MG/DL (74-106); Osmolality,Calculated 300.1 MOS/KG (273-304); Potassium 3.9 MMOL/L (3.5-5.1); Sodium 142 MMOL/L (136-145); Total Protein 6.1 G/DL (6.4-8.2)
[2021-08-26] MEDS: carBAMazepine 200 MG TABLET PO SCH ×2 (10:33→22:25)
[2021-08-26] MEDS: ASPIRIN EC 81 MG TABLET PO SCH (10:33)
[2021-08-26] MEDS: LEVOFLOXACIN 250 MG TABLET PO SCH (10:34)
[2021-08-26] MEDS: FERROUS SULFATE 325 MG TABLET PO SCH (10:34)
[2021-08-26] MEDS: CETIRIZINE 10 MG TABLET PO SCH (10:34)
[2021-08-26] MEDS: AMIODARONE 200 MG TABLET PO SCH ×2 (10:34→10:36)
[2021-08-26] MEDS: PANTOPRAZOLE 40 MG TABLET PO SCH (10:34)
[2021-08-26] MEDS: DOCUSATE SODIUM 100 MG CAPSULE PO SCH (10:34)
[2021-08-26] MEDS: INSULIN REGULAR 100 UNIT/ML SUBCUT SCH ×4 (10:35→22:26)
[2021-08-26] MEDS: FUROSEMIDE 40 MG/4 ML VIAL IV SCH (10:35)
[2021-08-26] MEDS: CHLORHEXIDINE 0.12% ORAL RINSE 60 ML BOTTLE SWISH/SPIT SCH ×2 (10:36→22:25)
[2021-08-26] MEDS: DOBUTamine 500 MG/250 ML PREMIX IV PRN (12:33)
[2021-08-26 13:10] LABS: Arterial Base Excess iSTAT 1 MMOL/L (-2.5-2.5); Arterial Bicarbonate iSTAT 25.8 MMOL/L (20-26); Arterial O2 Saturation iSTAT 93 % (95-100); Arterial PCO2 iSTAT 39 MM HG (35-48); Arterial PO2 iSTAT 66 MM HG (80-95); Arterial Total CO2 iSTAT 27 MMO/L (23-27); Arterial pH iSTAT 7.429 (7.35-7.45)
[2021-08-26] MEDS ORDERED: FUROSEMIDE 40 MG/4 ML VIAL IV ONE (15:14)
[2021-08-26] MEDS ORDERED: AMIODARONE INJ 100 MG in DEXTROSE 5% 100 ML IV ONE (15:30)
[2021-08-26] MEDS: AMIODARONE INJ 450 MG in DEXTROSE 5% 241 ML IV SCH (16:08)
[2021-08-27] MEDS ORDERED: FUROSEMIDE 40 MG/4 ML VIAL IV ONE
[2021-08-27] MEDS: CEFEPIME 1,000 MG in SODIUM CHLORIDE 0.9% 100 ML IV SCH ×3 (00:16→15:19)
[2021-08-27] MEDS: ALBUTEROL/IPRATROPIUM 3 ML NEB RESP TX SCH ×4 (01:25→19:20)
[2021-08-27 06:42] LABS: Basophils % 0.1 % (0.0-0.8); Hematocrit 28.6 VOL% (35.7-47.0); Immature Granulocytes % 1.2 %; Immature Granulocytes Absolute 0.11 #; Lymphocytes # 0.3 10*3/uL (1.4-4.0); Lymphocytes % 3.1 % (21.3-54.2); Mean Corpuscular HGB Conc 31.5 GM/DL (32-36); Mean Corpuscular Volume 97.3 FL (87-102); Mean Platelet Volume 11.8 FL (9.6-12.0); Monocytes % 6.2 % (1.7-12.7); NRBC # 0.11 10*3/uL; Neutrophils % 89.4 % (38.7-73.9); Platelet Count 107 T/CUMM (130-400); Red Blood Count 2.94 MC/CUMM (3.8-5.5); Red Cell Distribution Width 16.8 % (9.3-17.3); White Blood Count 9.1 T/CUMM (4-12)
[2021-08-27] MEDS: methylPREDNISolone SOD SUC 40 MG/1 ML VIAL IV SCH ×3 (07:04→21:50)
[2021-08-27 07:07] LABS: Anisocytosis 1+; Hypochromia Slight; Lymphocytes 2 % (20-55); Microcytosis 1+; Nucleated Red Blood Cells 1 (0-5); Platelet Estimate Decreased; Segmented Neutrophils 87 % (50-85); Total Cells Counted 100
[2021-08-27 07:08] LABS: Alanine Aminotransferase 59 U/L (13-56); Albumin 2.2 G/DL (3.4-5.0); Alkaline Phosphatase 89 U/L (45-117); Aspartate Amino Transferase 56 U/L (0-37); Bilirubin,Indirect 0.4 MG/DL (0.0-1.0); Blood Urea Nitrogen 72 MG/DL (7-18); Calcium 8.3 MG/DL (8.5-10.1); Carbon Dioxide 26 MMOL/L (21-32); Estimated Glom Filtration Rate 28 ML/MIN; Glucose 187 MG/DL (74-106); Osmolality,Calculated 313.7 MOS/KG (273-304); Potassium 3.4 MMOL/L (3.5-5.1); Sodium 145 MMOL/L (136-145); Total Protein 6.3 G/DL (6.4-8.2)
[2021-08-27] MEDS: INSULIN REGULAR 100 UNIT/ML SUBCUT SCH ×4 (07:30→21:50)
[2021-08-27] MEDS: AMIODARONE INJ 450 MG in DEXTROSE 5% 241 ML IV SCH ×2 (07:55→21:30)
[2021-08-27] MEDS ORDERED: FUROSEMIDE 40 MG/4 ML VIAL IV SCH (09:00)
[2021-08-27] MEDS: FUROSEMIDE 40 MG/4 ML VIAL IV SCH ×3 (09:14→17:55)
[2021-08-27] MEDS: LEVOFLOXACIN 250 MG TABLET PO SCH (09:48)
[2021-08-27] MEDS: FERROUS SULFATE 325 MG TABLET PO SCH (09:48)
[2021-08-27] MEDS: POTASSIUM CHLORIDE 20 MEQ TABLET PO PRN ×3 (09:48→15:12)
[2021-08-27] MEDS: CETIRIZINE 10 MG TABLET PO SCH (09:48)
[2021-08-27] MEDS: PANTOPRAZOLE 40 MG TABLET PO SCH (09:48)
[2021-08-27] MEDS: carBAMazepine 200 MG TABLET PO SCH ×2 (09:48→21:50)
[2021-08-27] MEDS: ASPIRIN EC 81 MG TABLET PO SCH (09:48)
[2021-08-27] MEDS: DOCUSATE SODIUM 100 MG CAPSULE PO SCH (09:49)
[2021-08-27] MEDS: CHLORHEXIDINE 0.12% ORAL RINSE 60 ML BOTTLE SWISH/SPIT SCH ×2 (09:49→21:50)
[2021-08-27] MEDS ORDERED: ETOMIDATE 20 MG/10 ML VIAL IV ONE ×2 (16:13→16:22)
[2021-08-27] MEDS ORDERED: SUCCINYLCHOLINE 200 MG/10 ML VIAL ONE (16:14)
[2021-08-27] MEDS ORDERED: SUCCINYLCHOLINE 200 MG/10 ML VIAL IV ONE (16:25)
[2021-08-27] MEDS: PHENYLEPHRINE DRIP 40 MG/250 ML PREMIX IV PRN ×2 (16:56→20:55)
[2021-08-27 17:31] LABS: ABG Base Excess 2.4 MMOL/L (-2.5-2.5); ABG HCO3 26.6 MMOL/L (20-26); ABG PCO2 42.4 MM HG (35-48); ABG PH 7.414 (7.35-7.45)
[2021-08-27] MEDS: PIPERACILLIN/TAZOBACTAM 3,375 MG in SODIUM CHLORIDE 0.9% 100 ML IV SCH (18:00)
[2021-08-28] MEDS: CEFEPIME 1,000 MG in SODIUM CHLORIDE 0.9% 100 ML IV SCH ×3 (00:10→16:28)
[2021-08-28] MEDS: ALBUTEROL/IPRATROPIUM 3 ML NEB RESP TX SCH ×4 (00:10→19:50)
[2021-08-28] MEDS: AMIODARONE INJ 450 MG in DEXTROSE 5% 241 ML IV SCH ×3 (00:27→19:34)
[2021-08-28] MEDS: PHENYLEPHRINE DRIP 40 MG/250 ML PREMIX IV PRN ×3 (00:44→08:25)
[2021-08-28] MEDS: PIPERACILLIN/TAZOBACTAM 3,375 MG in SODIUM CHLORIDE 0.9% 100 ML IV SCH ×3 (02:18→18:10)
[2021-08-28 03:35] LABS: ABG Base Excess 0.7 MMOL/L (-2.5-2.5); ABG Oxygen Saturation 97.9 % (95-100); ABG PH 7.424 (7.35-7.45); ABG TCO2 26.2 MMOL/L (23-27)
[2021-08-28] MEDS: methylPREDNISolone SOD SUC 40 MG/1 ML VIAL IV SCH ×3 (06:10→20:40)
[2021-08-28 06:17] LABS: Basophils % 0.1 % (0.0-0.8); Hematocrit 30.8 VOL% (35.7-47.0); Hemoglobin 9.7 GM/DL (12.0-16.0); Immature Granulocytes % 1.7 %; Immature Granulocytes Absolute 0.25 #; Lymphocytes # 0.3 10*3/uL (1.4-4.0); Lymphocytes % 2.3 % (21.3-54.2); Mean Corpuscular HGB Conc 31.5 GM/DL (32-36); Mean Corpuscular Volume 97.5 FL (87-102); Mean Platelet Volume 11.8 FL (9.6-12.0); NRBC # 0.64 10*3/uL; Neutrophils % 89.9 % (38.7-73.9); Platelet Count 134 T/CUMM (130-400); Red Blood Count 3.16 MC/CUMM (3.8-5.5); Red Cell Distribution Width 17.3 % (9.3-17.3); White Blood Count 14.4 T/CUMM (4-12)
[2021-08-28 06:32] LABS: Bilirubin,Total 0.8 MG/DL (0.20-1.00); Calcium 8.1 MG/DL (8.5-10.1); Osmolality,Calculated 318.7 MOS/KG (273-304); Potassium 3.8 MMOL/L (3.5-5.1); Total Protein 6.1 G/DL (6.4-8.2)
[2021-08-28 06:46] LABS: Hypochromia 1+; Lymphocytes 3 % (20-55); Microcytosis 1+; Nucleated Red Blood Cells 4 (0-5); Platelet Estimate Normal; Segmented Neutrophils 93 % (50-85); Total Cells Counted 100
[2021-08-28] MEDS: POTASSIUM CHLORIDE 20 MEQ TABLET PO PRN (07:05)
[2021-08-28] MEDS: FERROUS SULFATE 325 MG TABLET PO SCH (08:26)
[2021-08-28] MEDS: FUROSEMIDE 40 MG/4 ML VIAL IV SCH ×2 (08:26→16:29)
[2021-08-28] MEDS: ASPIRIN EC 81 MG TABLET PO SCH (08:26)
[2021-08-28] MEDS: CETIRIZINE 10 MG TABLET PO SCH (08:26)
[2021-08-28] MEDS: INSULIN REGULAR 100 UNIT/ML SUBCUT SCH ×4 (08:26→17:03)
[2021-08-28] MEDS: CHLORHEXIDINE 0.12% ORAL RINSE 60 ML BOTTLE SWISH/SPIT SCH ×2 (08:27→20:44)
[2021-08-28] MEDS: DOCUSATE SODIUM 100 MG CAPSULE PO SCH (08:27)
[2021-08-28] MEDS: DOBUTamine 500 MG/250 ML PREMIX IV PRN (08:33)
[2021-08-28] MEDS: carBAMazepine 200 MG TABLET PO SCH ×2 (08:37→20:45)
[2021-08-28] MEDS: PANTOPRAZOLE 40 MG VIAL IV SCH (08:37)
[2021-08-28] MEDS: PHENYLEPHRINE INJ 160 MG in SODIUM CHLORIDE 0.9% 234 ML IV PRN (12:22)
[2021-08-29] MEDS: CEFEPIME 1,000 MG in SODIUM CHLORIDE 0.9% 100 ML IV SCH ×4 (00:10→23:19)
[2021-08-29] MEDS: INSULIN REGULAR 100 UNIT/ML SUBCUT SCH ×4 (00:30→17:57)
[2021-08-29] MEDS: ALBUTEROL/IPRATROPIUM 3 ML NEB RESP TX SCH ×4 (00:50→19:17)
[2021-08-29] MEDS: PIPERACILLIN/TAZOBACTAM 3,375 MG in SODIUM CHLORIDE 0.9% 100 ML IV SCH ×3 (03:30→19:30)
[2021-08-29 03:51] LABS: ABG Base Excess 2.6 MMOL/L (-2.5-2.5); ABG HCO3 26.8 MMOL/L (20-26); ABG Oxygen Saturation 99.3 % (95-100); ABG PCO2 40.9 MM HG (35-48); ABG TCO2 24.6 MMOL/L (23-27)
[2021-08-29] MEDS: AMIODARONE INJ 450 MG in DEXTROSE 5% 241 ML IV SCH ×3 (04:21→17:59)
[2021-08-29] MEDS: methylPREDNISolone SOD SUC 40 MG/1 ML VIAL IV SCH ×3 (05:45→21:49)
[2021-08-29 06:39] LABS: Basophils # 0.1 10*3/uL (0.0-0.2); Basophils % 0.3 % (0.0-0.8); Hematocrit 30.7 VOL% (35.7-47.0); Hemoglobin 9.7 GM/DL (12.0-16.0); Immature Granulocytes % 2.6 %; Immature Granulocytes Absolute 0.45 #; Lymphocytes # 0.6 10*3/uL (1.4-4.0); Lymphocytes % 3.4 % (21.3-54.2); Mean Corpuscular HGB Conc 31.6 GM/DL (32-36); Mean Corpuscular Volume 96.2 FL (87-102); Mean Platelet Volume 12.1 FL (9.6-12.0); Monocytes % 6.2 % (1.7-12.7); NRBC # 0.83 10*3/uL; Neutrophils % 87.5 % (38.7-73.9); Platelet Count 101 T/CUMM (130-400); Red Blood Count 3.19 MC/CUMM (3.8-5.5); Red Cell Distribution Width 17.8 % (9.3-17.3); White Blood Count 17.3 T/CUMM (4-12)
[2021-08-29 07:00] LABS: Albumin 1.9 G/DL (3.4-5.0); Bilirubin,Total 0.6 MG/DL (0.20-1.00); Calcium 7.9 MG/DL (8.5-10.1); Osmolality,Calculated 327.6 MOS/KG (273-304); Potassium 3.6 MMOL/L (3.5-5.1); Total Protein 5.8 G/DL (6.4-8.2)
[2021-08-29 07:22] LABS: Band Neutrophils 1 % (0-10); Lymphocytes 4 % (20-55); Nucleated Red Blood Cells 2 (0-5); Segmented Neutrophils 90 % (50-85); Total Cells Counted 100
[2021-08-29 07:27] LABS: Target Cells Few
[2021-08-29 07:28] LABS: Ovalocytes Few; Polychromasia Slight
[2021-08-29 07:29] LABS: Anisocytosis 1+; Elliptocytes Few; Platelet Estimate Adequate; Stomatocytes Few
[2021-08-29] MEDS: carBAMazepine 200 MG TABLET PO SCH ×2 (09:02→21:55)
[2021-08-29] MEDS: ASPIRIN CHEW 81 MG TABLET PO SCH (09:02)
[2021-08-29] MEDS: CETIRIZINE 10 MG TABLET PO SCH (09:02)
[2021-08-29] MEDS: FERROUS SULFATE 325 MG TABLET PO SCH (09:03)
[2021-08-29] MEDS: FUROSEMIDE 40 MG/4 ML VIAL IV SCH ×2 (09:03→21:55)
[2021-08-29] MEDS: DOCUSATE SODIUM 100 MG/10 ML UDCUP PO SCH (09:04)
[2021-08-29] MEDS: MULTIVITAMIN LIQUID (CENTRUM) 60 ML BOTTLE PO SCH (09:04)
[2021-08-29] MEDS: PANTOPRAZOLE 40 MG VIAL IV SCH (09:04)
[2021-08-29] MEDS: CHLORHEXIDINE 0.12% ORAL RINSE 60 ML BOTTLE SWISH/SPIT SCH ×2 (09:05→21:49)
[2021-08-29] MEDS: PHENYLEPHRINE INJ 160 MG in SODIUM CHLORIDE 0.9% 234 ML IV PRN (10:00)
[2021-08-30] MEDS: INSULIN REGULAR 100 UNIT/ML SUBCUT SCH ×5 (00:22→19:29)
[2021-08-30] MEDS: PIPERACILLIN/TAZOBACTAM 3,375 MG in SODIUM CHLORIDE 0.9% 100 ML IV SCH ×3 (03:09→18:20)
[2021-08-30] MEDS: DOBUTamine 500 MG/250 ML PREMIX IV PRN (03:10)
[2021-08-30] MEDS: AMIODARONE INJ 450 MG in DEXTROSE 5% 241 ML IV SCH ×2 (03:11→19:30)
[2021-08-30 03:51] LABS: ABG Base Excess 4.3 MMOL/L (-2.5-2.5); ABG HCO3 28.9 MMOL/L (20-26); ABG Oxygen Saturation 68.2 % (95-100); ABG PCO2 43.2 MM HG (35-48); ABG PH 7.443 (7.35-7.45); ABG TCO2 30.2 MMOL/L (23-27)
[2021-08-30 03:56] LABS: ABG PO2 35.3 MM HG (80-95)
[2021-08-30 04:12] LABS: ABG Base Excess 4.5 MMOL/L (-2.5-2.5); ABG HCO3 28.5 MMOL/L (20-26); ABG Oxygen Saturation 98.9 % (95-100); ABG PH 7.424 (7.35-7.45); ABG TCO2 26.9 MMOL/L (23-27)
[2021-08-30] MEDS: methylPREDNISolone SOD SUC 40 MG/1 ML VIAL IV SCH ×3 (05:44→20:54)
[2021-08-30] MEDS: CEFEPIME 1,000 MG in SODIUM CHLORIDE 0.9% 100 ML IV SCH ×3 (06:46→23:13)
[2021-08-30 07:33] LABS: Basophils % 0.1 % (0.0-0.8); Hematocrit 29.5 VOL% (35.7-47.0); Hemoglobin 9.3 GM/DL (12.0-16.0); Immature Granulocytes % 3.7 %; Immature Granulocytes Absolute 0.66 #; Lymphocytes # 0.4 10*3/uL (1.4-4.0); Lymphocytes % 2.4 % (21.3-54.2); Mean Corpuscular HGB Conc 31.5 GM/DL (32-36); Mean Corpuscular Volume 98.3 FL (87-102); Mean Platelet Volume 12.8 FL (9.6-12.0); Monocytes % 3.2 % (1.7-12.7); NRBC # 0.37 10*3/uL; Neutrophils % 90.6 % (38.7-73.9); White Blood Count 17.7 T/CUMM (4-12)
[2021-08-30 07:36] LABS: Platelet Count 83 T/CUMM (130-400)
[2021-08-30 07:52] LABS: Calcium 7.8 MG/DL (8.5-10.1); Potassium 5.4 MMOL/L (3.5-5.1)
[2021-08-30 07:58] LABS: Hypochromia 1+; Lymphocytes 6 % (20-55); Microcytosis 1+; Nucleated Red Blood Cells 1 (0-5); Platelet Estimate Decreased; Segmented Neutrophils 93 % (50-85); Total Cells Counted 100
[2021-08-30] MEDS: ALBUTEROL/IPRATROPIUM 3 ML NEB RESP TX SCH ×4 (08:04→19:34)
[2021-08-30] MEDS: DOCUSATE SODIUM 100 MG/10 ML UDCUP PO SCH (08:49)
[2021-08-30] MEDS: PANTOPRAZOLE 40 MG VIAL IV SCH (08:49)
[2021-08-30] MEDS: FERROUS SULFATE 325 MG TABLET PO SCH (08:50)
[2021-08-30] MEDS: CETIRIZINE 10 MG TABLET PO SCH (08:50)
[2021-08-30] MEDS: ASPIRIN CHEW 81 MG TABLET PO SCH (08:50)
[2021-08-30] MEDS: carBAMazepine 200 MG TABLET PO SCH ×2 (08:50→20:54)
[2021-08-30] MEDS: MULTIVITAMIN LIQUID (CENTRUM) 60 ML BOTTLE PO SCH (08:50)
[2021-08-30] MEDS: CHLORHEXIDINE 0.12% ORAL RINSE 60 ML BOTTLE SWISH/SPIT SCH ×2 (08:50→20:52)
[2021-08-30] MEDS: FUROSEMIDE 40 MG/4 ML VIAL IV SCH ×2 (10:30→11:21)
[2021-08-30] MEDS: FLUCONAZOLE INJ 200 MG/100 ML PREMIX IV SCH (11:00)
[2021-08-30] MEDS: PHENYLEPHRINE INJ 160 MG in SODIUM CHLORIDE 0.9% 234 ML IV PRN (12:15)
[2021-08-31] MEDS: INSULIN REGULAR 100 UNIT/ML SUBCUT SCH ×7 (00:20→23:48)
[2021-08-31] MEDS: ALBUTEROL/IPRATROPIUM 3 ML NEB RESP TX SCH ×4 (01:05→18:22)
[2021-08-31] MEDS: PIPERACILLIN/TAZOBACTAM 3,375 MG in SODIUM CHLORIDE 0.9% 100 ML IV SCH ×3 (03:20→18:08)
[2021-08-31 03:52] LABS: ABG Base Excess 4.2 MMOL/L (-2.5-2.5); ABG HCO3 28.2 MMOL/L (20-26); ABG Oxygen Saturation 99.2 % (95-100); ABG PCO2 46.6 MM HG (35-48); ABG PH 7.411 (7.35-7.45); ABG TCO2 26.2 MMOL/L (23-27)
[2021-08-31 03:59] LABS: Basophils % 0.1 % (0.0-0.8); Hematocrit 28.9 VOL% (35.7-47.0); Immature Granulocytes % 2.9 %; Immature Granulocytes Absolute 0.59 #; Lymphocytes # 0.4 10*3/uL (1.4-4.0); Lymphocytes % 1.9 % (21.3-54.2); Mean Corpuscular HGB Conc 31.1 GM/DL (32-36); Mean Platelet Volume 11.9 FL (9.6-12.0); NRBC # 0.19 10*3/uL; Neutrophils % 91.1 % (38.7-73.9); Red Blood Count 2.95 MC/CUMM (3.8-5.5); Red Cell Distribution Width 18.3 % (9.3-17.3); White Blood Count 20.7 T/CUMM (4-12)
[2021-08-31 04:01] LABS: Platelet Count 83 T/CUMM (130-400)
[2021-08-31 04:19] LABS: Hypochromia Slight; Lymphocytes 3 % (20-55); Microcytosis Slight; Platelet Estimate Decreased; Segmented Neutrophils 93 % (50-85); Total Cells Counted 100
[2021-08-31 04:23] LABS: Osmolality,Calculated 330.4 MOS/KG (273-304); Potassium 3.9 MMOL/L (3.5-5.1)
[2021-08-31] MEDS: methylPREDNISolone SOD SUC 40 MG/1 ML VIAL IV SCH ×3 (05:24→20:42)
[2021-08-31] MEDS: CEFEPIME 1,000 MG in SODIUM CHLORIDE 0.9% 100 ML IV SCH ×3 (06:34→22:59)
[2021-08-31] MEDS: DOCUSATE SODIUM 100 MG/10 ML UDCUP PO SCH (08:19)
[2021-08-31] MEDS: ASPIRIN CHEW 81 MG TABLET PO SCH (08:20)
[2021-08-31] MEDS: FERROUS SULFATE 325 MG TABLET PO SCH (08:20)
[2021-08-31] MEDS: carBAMazepine 200 MG TABLET PO SCH ×2 (08:20→20:42)
[2021-08-31] MEDS: CETIRIZINE 10 MG TABLET PO SCH (08:20)
[2021-08-31] MEDS: FUROSEMIDE 40 MG/4 ML VIAL IV SCH (08:20)
[2021-08-31] MEDS: CHLORHEXIDINE 0.12% ORAL RINSE 60 ML BOTTLE SWISH/SPIT SCH ×2 (08:21→20:42)
[2021-08-31] MEDS: PANTOPRAZOLE 40 MG VIAL IV SCH (08:21)
[2021-08-31] MEDS: MULTIVITAMIN LIQUID (CENTRUM) 60 ML BOTTLE PO SCH (08:21)
[2021-08-31] MEDS: FLUCONAZOLE INJ 200 MG/100 ML PREMIX IV SCH (09:00)
[2021-08-31] MEDS: AMIODARONE INJ 450 MG in DEXTROSE 5% 241 ML IV SCH (13:45)
[2021-08-31] MEDS: DOBUTamine 500 MG/250 ML PREMIX IV PRN (23:38)
[2021-09-01] MEDS: ALBUTEROL/IPRATROPIUM 3 ML NEB RESP TX SCH ×4 (00:05→19:11)
[2021-09-01] MEDS: AMIODARONE INJ 450 MG in DEXTROSE 5% 241 ML IV SCH ×3 (03:11→21:00)
[2021-09-01] MEDS: PIPERACILLIN/TAZOBACTAM 3,375 MG in SODIUM CHLORIDE 0.9% 100 ML IV SCH (03:33)
[2021-09-01] MEDS: INSULIN REGULAR 100 UNIT/ML SUBCUT SCH ×6 (03:37→23:50)
[2021-09-01 04:22] LABS: ABG Oxygen Saturation 99.6 % (95-100); ABG PCO2 40.9 MM HG (35-48); ABG PH 7.448 (7.35-7.45); ABG TCO2 25.4 MMOL/L (23-27); Allen Test Positive; Pt O2 Delivery Device Ventilator
[2021-09-01 04:47] LABS: Basophils # 0.1 10*3/uL (0.0-0.2); Basophils % 0.2 % (0.0-0.8); Hemoglobin 9.3 GM/DL (12.0-16.0); Immature Granulocytes % 1.7 %; Immature Granulocytes Absolute 0.38 #; Lymphocytes # 0.5 10*3/uL (1.4-4.0); Lymphocytes % 2.2 % (21.3-54.2); Mean Corpuscular Volume 98.4 FL (87-102); Mean Platelet Volume 12.5 FL (9.6-12.0); Monocytes % 4.3 % (1.7-12.7); NRBC # 0.08 10*3/uL; Neutrophils % 91.6 % (38.7-73.9); Red Blood Count 3.05 MC/CUMM (3.8-5.5); Red Cell Distribution Width 18.6 % (9.3-17.3); White Blood Count 21.9 T/CUMM (4-12)
[2021-09-01 04:52] LABS: Platelet Count 88 T/CUMM (130-400)
[2021-09-01 05:02] LABS: Calcium 8.2 MG/DL (8.5-10.1); Osmolality,Calculated 335.3 MOS/KG (273-304); Potassium 4.1 MMOL/L (3.5-5.1)
[2021-09-01 05:10] LABS: Hypochromia 1+; Lymphocytes 1 % (20-55); Microcytosis 1+; Platelet Estimate Decreased; Segmented Neutrophils 92 % (50-85); Total Cells Counted 100
[2021-09-01] MEDS: methylPREDNISolone SOD SUC 40 MG/1 ML VIAL IV SCH ×3 (05:48→20:03)
[2021-09-01] MEDS: CEFEPIME 1,000 MG in SODIUM CHLORIDE 0.9% 100 ML IV SCH ×3 (06:05→22:22)
[2021-09-01] MEDS ORDERED: INSULIN GLARGINE 100 UNIT/ML SUBCUT SCH (09:00)
[2021-09-01] MEDS: CHLORHEXIDINE 0.12% ORAL RINSE 60 ML BOTTLE SWISH/SPIT SCH ×2 (09:10→20:04)
[2021-09-01] MEDS: FUROSEMIDE 40 MG/4 ML VIAL IV SCH (09:11)
[2021-09-01] MEDS: PANTOPRAZOLE 40 MG VIAL IV SCH (09:11)
[2021-09-01] MEDS: MULTIVITAMIN LIQUID (CENTRUM) 60 ML BOTTLE PO SCH (09:11)
[2021-09-01] MEDS: ASPIRIN CHEW 81 MG TABLET PO SCH (09:13)
[2021-09-01] MEDS: CETIRIZINE 10 MG TABLET PO SCH (09:13)
[2021-09-01] MEDS: DOCUSATE SODIUM 100 MG/10 ML UDCUP PO SCH (09:13)
[2021-09-01] MEDS: FERROUS SULFATE 325 MG TABLET PO SCH (09:13)
[2021-09-01] MEDS: carBAMazepine 200 MG TABLET PO SCH ×2 (09:13→20:03)
[2021-09-01] MEDS: FLUCONAZOLE INJ 200 MG/100 ML PREMIX IV SCH (09:22)
[2021-09-01 14:24] LABS: Amorphous Crystals,Urine Occasional /HPF (Few); RBC,Urine 1 /HPF (0-4)
[2021-09-01 14:28] LABS: Bilirubin,Urine Negative (Negative); Blood, Urine Moderate mg/dL (Negative); Glucose,Urine (UA) Negative (Negative); Ketones,Urine Negative (Negative); Nitrite,Urine Negative (Negative); Protein,Urine 30 MG/DL; Urine Appearance Slightly Cloudy (Clear); Urine Color Light Yellow (Yellow); Urine Specific Gravity 1.015 (1.001-1.035); Urine Urobilinogen 0.2 EU/DL (<2.0)
[2021-09-01] MEDS: DOBUTamine 500 MG/250 ML PREMIX IV PRN (16:31)
[2021-09-02] MEDS: ALBUTEROL/IPRATROPIUM 3 ML NEB RESP TX SCH ×4 (00:07→19:35)
[2021-09-02] MEDS: MORPHINE 4 MG/1 ML VIAL IV PRN (00:15)
[2021-09-02 03:48] LABS: Basophils % 0.1 % (0.0-0.8); Hematocrit 30.7 VOL% (35.7-47.0); Hemoglobin 9.6 GM/DL (12.0-16.0); Immature Granulocytes % 1.6 %; Immature Granulocytes Absolute 0.33 #; Lymphocytes # 0.3 10*3/uL (1.4-4.0); Lymphocytes % 1.4 % (21.3-54.2); Mean Corpuscular HGB Conc 31.3 GM/DL (32-36); Mean Platelet Volume 13.7 FL (9.6-12.0); Monocytes % 3.2 % (1.7-12.7); NRBC # 0.04 10*3/uL; Neutrophils % 93.7 % (38.7-73.9); Platelet Count 74 T/CUMM (130-400); Red Cell Distribution Width 18.6 % (9.3-17.3); White Blood Count 20.3 T/CUMM (4-12)
[2021-09-02 04:07] LABS: Albumin 1.7 G/DL (3.4-5.0); Bilirubin,Total 0.6 MG/DL (0.20-1.00); Calcium 8.4 MG/DL (8.5-10.1); Potassium 4.7 MMOL/L (3.5-5.1); Total Protein 6.1 G/DL (6.4-8.2)
[2021-09-02 04:18] LABS: Anisocytosis 1+; Hypochromia 1+; Lymphocytes 2 % (20-55); Microcytosis 1+; Polychromasia Slight; Segmented Neutrophils 95 % (50-85); Target Cells Slight; Total Cells Counted 100
[2021-09-02 04:19] LABS: Platelet Estimate Decreased
[2021-09-02] MEDS: INSULIN REGULAR 100 UNIT/ML SUBCUT SCH ×5 (04:32→20:41)
[2021-09-02] MEDS: methylPREDNISolone SOD SUC 40 MG/1 ML VIAL IV SCH ×3 (04:34→20:30)
[2021-09-02] MEDS: AMIODARONE INJ 450 MG in DEXTROSE 5% 241 ML IV SCH ×3 (05:36→20:41)
[2021-09-02] MEDS: CEFEPIME 1,000 MG in SODIUM CHLORIDE 0.9% 100 ML IV SCH ×3 (06:00→23:00)
[2021-09-02] MEDS ORDERED: ALBUMIN 25% 25 GM/100 ML VIAL IV ONE (08:09)
[2021-09-02] MEDS: INSULIN GLARGINE 100 UNIT/ML SUBCUT SCH (08:50)
[2021-09-02] MEDS: FERROUS SULFATE 325 MG TABLET PO SCH (08:51)
[2021-09-02] MEDS: PANTOPRAZOLE 40 MG VIAL IV SCH (08:51)
[2021-09-02] MEDS: CETIRIZINE 10 MG TABLET PO SCH (08:51)
[2021-09-02] MEDS: ASPIRIN CHEW 81 MG TABLET PO SCH (08:51)
[2021-09-02] MEDS: carBAMazepine 200 MG TABLET PO SCH ×3 (08:51→21:50)
[2021-09-02] MEDS: CHLORHEXIDINE 0.12% ORAL RINSE 60 ML BOTTLE SWISH/SPIT SCH ×2 (08:52→20:41)
[2021-09-02] MEDS: FLUCONAZOLE INJ 200 MG/100 ML PREMIX IV SCH (09:00)
[2021-09-02] MEDS: DOCUSATE SODIUM 100 MG/10 ML UDCUP PO SCH (09:01)
[2021-09-02] MEDS: MULTIVITAMIN LIQUID (CENTRUM) 60 ML BOTTLE PO SCH (09:03)
[2021-09-02] MEDS: ALBUMIN 25% 12.5 GM/50 ML VIAL IV SCH (17:53)
[2021-09-03] MEDS: INSULIN REGULAR 100 UNIT/ML SUBCUT SCH ×6 (00:10→19:32)
[2021-09-03] MEDS: MORPHINE 4 MG/1 ML VIAL IV PRN (00:15)
[2021-09-03] MEDS: ALBUTEROL/IPRATROPIUM 3 ML NEB RESP TX SCH ×4 (00:21→18:18)
[2021-09-03] MEDS: ALBUMIN 25% 12.5 GM/50 ML VIAL IV SCH ×3 (00:37→16:30)
[2021-09-03] MEDS: DOBUTamine 500 MG/250 ML PREMIX IV PRN (01:01)
[2021-09-03] MEDS: AMIODARONE INJ 450 MG in DEXTROSE 5% 241 ML IV SCH ×3 (04:31→19:15)
[2021-09-03 05:01] LABS: Basophils % 0.1 % (0.0-0.8); Hematocrit 26.5 VOL% (35.7-47.0); Hemoglobin 8.2 GM/DL (12.0-16.0); Immature Granulocytes % 1.4 %; Immature Granulocytes Absolute 0.23 #; Lymphocytes # 0.2 10*3/uL (1.4-4.0); Lymphocytes % 1.3 % (21.3-54.2); Mean Corpuscular HGB Conc 30.9 GM/DL (32-36); Mean Corpuscular Volume 98.9 FL (87-102); Mean Platelet Volume 12.8 FL (9.6-12.0); Monocytes % 3.6 % (1.7-12.7); NRBC # 0.02 10*3/uL; Neutrophils % 93.6 % (38.7-73.9); Platelet Count 106 T/CUMM (130-400); Red Blood Count 2.68 MC/CUMM (3.8-5.5); Red Cell Distribution Width 18.9 % (9.3-17.3); White Blood Count 16.2 T/CUMM (4-12)
[2021-09-03 05:22] LABS: Albumin 2.3 G/DL (3.4-5.0); Bilirubin,Total 0.7 MG/DL (0.20-1.00); Calcium 8.4 MG/DL (8.5-10.1); Osmolality,Calculated 342.7 MOS/KG (273-304); Potassium 4.1 MMOL/L (3.5-5.1); Total Protein 5.9 G/DL (6.4-8.2)
[2021-09-03 05:45] LABS: Hypochromia 1+; Lymphocytes 2 % (20-55); Microcytosis 1+; Nucleated Red Blood Cells 1 (0-5); Platelet Estimate Decreased; Segmented Neutrophils 95 % (50-85); Total Cells Counted 100
[2021-09-03] MEDS: CEFEPIME 1,000 MG in SODIUM CHLORIDE 0.9% 100 ML IV SCH ×3 (06:49→22:54)
[2021-09-03 08:49] LABS: Arterial Base Excess iSTAT 1 MMOL/L (-2.5-2.5); Arterial PCO2 iSTAT 39 MM HG (35-48); Arterial PO2 iSTAT 71 MM HG (80-95); Arterial pH iSTAT 7.416 (7.35-7.45)
[2021-09-03 08:50] LABS: Arterial Bicarbonate iSTAT 25.1 MMOL/L (20-26); Arterial O2 Saturation iSTAT 31 % (95-100); Arterial Total CO2 iSTAT 26 MMO/L (23-27)
[2021-09-03] MEDS: CHLORHEXIDINE 0.12% ORAL RINSE 60 ML BOTTLE SWISH/SPIT SCH ×2 (09:00→21:15)
[2021-09-03] MEDS: methylPREDNISolone SOD SUC 40 MG/1 ML VIAL IV SCH ×3 (09:00→20:12)
[2021-09-03] MEDS: FERROUS SULFATE 325 MG TABLET PO SCH (09:15)
[2021-09-03] MEDS: MULTIVITAMIN LIQUID (CENTRUM) 60 ML BOTTLE PO SCH (09:15)
[2021-09-03] MEDS: DOCUSATE SODIUM 100 MG/10 ML UDCUP PO SCH (09:15)
[2021-09-03] MEDS: ASPIRIN CHEW 81 MG TABLET PO SCH (09:15)
[2021-09-03] MEDS: carBAMazepine 200 MG TABLET PO SCH ×2 (09:15→21:15)
[2021-09-03] MEDS: CETIRIZINE 10 MG TABLET PO SCH (09:15)
[2021-09-03] MEDS: INSULIN GLARGINE 100 UNIT/ML SUBCUT SCH (09:15)
[2021-09-03] MEDS: PANTOPRAZOLE 40 MG VIAL IV SCH (09:30)
[2021-09-03] MEDS: FLUCONAZOLE INJ 200 MG/100 ML PREMIX IV SCH (09:30)
[2021-09-03] MEDS ORDERED: ETOMIDATE 20 MG/10 ML VIAL IV ONE ×2 (13:36→13:43)
[2021-09-03 15:10] LABS: Arterial Base Excess iSTAT 1 MMOL/L (-2.5-2.5); Arterial Bicarbonate iSTAT 27.4 MMOL/L (20-26); Arterial O2 Saturation iSTAT 100 % (95-100); Arterial PCO2 iSTAT 49 MM HG (35-48); Arterial PO2 iSTAT 343 MM HG (80-95); Arterial Total CO2 iSTAT 29 MMO/L (23-27); Arterial pH iSTAT 7.358 (7.35-7.45)
[2021-09-03] MEDS ORDERED: SIMVASTATIN 20 MG TABLET PO SCH (21:00)
[2021-09-04] MEDS: ALBUTEROL/IPRATROPIUM 3 ML NEB RESP TX SCH ×4 (00:04→20:36)
[2021-09-04] MEDS: INSULIN REGULAR 100 UNIT/ML SUBCUT SCH ×6 (00:26→20:14)
[2021-09-04] MEDS: ALBUMIN 25% 12.5 GM/50 ML VIAL IV SCH ×2 (00:44→09:55)
[2021-09-04] MEDS: AMIODARONE INJ 450 MG in DEXTROSE 5% 241 ML IV SCH ×2 (03:26→11:00)
[2021-09-04 03:54] LABS: Albumin 2.7 G/DL (3.4-5.0); Calcium 8.4 MG/DL (8.5-10.1); Potassium 4.5 MMOL/L (3.5-5.1); Total Protein 6.1 G/DL (6.4-8.2)
[2021-09-04 05:31] LABS: Basophils % 0.1 % (0.0-0.8); Hematocrit 24.5 VOL% (35.7-47.0); Hemoglobin 7.5 GM/DL (12.0-16.0); Immature Granulocytes % 1.3 %; Immature Granulocytes Absolute 0.16 #; Lymphocytes # 0.2 10*3/uL (1.4-4.0); Lymphocytes % 1.4 % (21.3-54.2); Mean Corpuscular HGB Conc 30.6 GM/DL (32-36); Mean Corpuscular Volume 101.7 FL (87-102); Mean Platelet Volume 12.9 FL (9.6-12.0); Monocytes % 3.3 % (1.7-12.7); Neutrophils % 93.9 % (38.7-73.9); Platelet Count 92 T/CUMM (130-400); Red Blood Count 2.41 MC/CUMM (3.8-5.5); Red Cell Distribution Width 18.9 % (9.3-17.3); White Blood Count 12.8 T/CUMM (4-12)
[2021-09-04 05:57] LABS: Hypochromia 1+; Lymphocytes 2 % (20-55); Microcytosis 1+; Platelet Estimate Decreased; Segmented Neutrophils 94 % (50-85); Total Cells Counted 100
[2021-09-04] MEDS: CEFEPIME 1,000 MG in SODIUM CHLORIDE 0.9% 100 ML IV SCH (06:06)
[2021-09-04] MEDS ORDERED: MIDAZOLAM 2 MG/2 ML VIAL ONE (07:05)
[2021-09-04] MEDS ORDERED: MIDAZOLAM 2 MG/2 ML VIAL IV ONE (07:30)
[2021-09-04] MEDS ORDERED: ASPIRIN CHEW 81 MG TABLET PO SCH (09:00)
[2021-09-04] MEDS: FLUCONAZOLE INJ 200 MG/100 ML PREMIX IV SCH (09:00)
[2021-09-04] MEDS ORDERED: SODIUM CHLORIDE 0.9% 1,000 ML IV PRN (09:17)
[2021-09-04] MEDS: SODIUM CHLORIDE 0.9% 1,000 ML IV SCH ×3 (09:54→21:29)
[2021-09-04] MEDS: methylPREDNISolone SOD SUC 40 MG/1 ML VIAL IV SCH ×2 (09:55→20:19)
[2021-09-04] MEDS: ASPIRIN CHEW 81 MG TABLET PO SCH (09:55)
[2021-09-04] MEDS: MULTIVITAMIN LIQUID (CENTRUM) 60 ML BOTTLE PO SCH (09:55)
[2021-09-04] MEDS: DOCUSATE SODIUM 100 MG/10 ML UDCUP PO SCH (09:55)
[2021-09-04] MEDS: FERROUS SULFATE 325 MG TABLET PO SCH (09:55)
[2021-09-04] MEDS: INSULIN GLARGINE 100 UNIT/ML SUBCUT SCH (09:56)
[2021-09-04] MEDS: CHLORHEXIDINE 0.12% ORAL RINSE 60 ML BOTTLE SWISH/SPIT SCH ×2 (09:56→20:24)
[2021-09-04] MEDS: carBAMazepine 200 MG TABLET PO SCH ×2 (09:56→20:25)
[2021-09-04] MEDS: PANTOPRAZOLE 40 MG VIAL IV SCH (09:56)
[2021-09-04] MEDS: CETIRIZINE 10 MG TABLET PO SCH (09:56)
[2021-09-04 11:08] LABS: Arterial PCO2 iSTAT 40 MM HG (35-48)
[2021-09-04 11:09] LABS: Arterial Base Excess iSTAT -1 MMOL/L (-2.5-2.5); Arterial PO2 iSTAT 209 MM HG (80-95)
[2021-09-04 11:10] LABS: Arterial Bicarbonate iSTAT 23.7 MMOL/L (20-26); Arterial O2 Saturation iSTAT 100 % (95-100); Arterial Total CO2 iSTAT 25 MMO/L (23-27)
[2021-09-04 11:20] LABS: % Iron Saturation 11.3 % (18-50); Ferritin 586.3 ng/mL (8-252)
[2021-09-04 11:28] LABS: Folate 8.45 NG/ML (5.38-24.0)
[2021-09-04 21:57] LABS: Hematocrit 30.7 VOL% (35.7-47.0); Hemoglobin 9.7 GM/DL (12.0-16.0)
[2021-09-04] MEDS: DOBUTamine 500 MG/250 ML PREMIX IV PRN (23:22)
[2021-09-05] MEDS: INSULIN REGULAR 100 UNIT/ML SUBCUT SCH ×7 (00:11→23:51)
[2021-09-05] MEDS: ALBUTEROL/IPRATROPIUM 3 ML NEB RESP TX SCH ×4 (01:15→19:54)
[2021-09-05] MEDS: AMIODARONE INJ 450 MG in DEXTROSE 5% 241 ML IV SCH ×2 (02:45→09:27)
[2021-09-05 03:47] LABS: ABG Base Excess -7.9 MMOL/L (-2.5-2.5); ABG Oxygen Saturation 95.5 % (95-100); ABG PCO2 39.8 MM HG (35-48); ABG PH 7.274 (7.35-7.45); ABG PO2 89.5 MM HG (80-95); ABG TCO2 17.1 MMOL/L (23-27)
[2021-09-05] MEDS: SODIUM CHLORIDE 0.9% 1,000 ML IV SCH (05:55)
[2021-09-05] MEDS ORDERED: SODIUM CHLORIDE 0.9% 1,000 ML IV PRN (06:08)
[2021-09-05 06:16] LABS: Basophils % 0.1 % (0.0-0.8); Hematocrit 30.8 VOL% (35.7-47.0); Hemoglobin 9.7 GM/DL (12.0-16.0); Immature Granulocytes % 0.7 %; Lymphocytes # 0.1 10*3/uL (1.4-4.0); Mean Corpuscular HGB Conc 31.5 GM/DL (32-36); Mean Corpuscular Volume 95.1 FL (87-102); Mean Platelet Volume 12.7 FL (9.6-12.0); Monocytes % 2.9 % (1.7-12.7); Neutrophils % 95.3 % (38.7-73.9); Platelet Count 96 T/CUMM (130-400); Red Blood Count 3.24 MC/CUMM (3.8-5.5); Red Cell Distribution Width 18.4 % (9.3-17.3); White Blood Count 13.4 T/CUMM (4-12)
[2021-09-05 06:18] LABS: Calcium 7.4 MG/DL (8.5-10.1); Osmolality,Calculated 344.1 MOS/KG (273-304); Potassium 4.5 MMOL/L (3.5-5.1)
[2021-09-05 06:27] LABS: Albumin 2.3 G/DL (3.4-5.0); Bilirubin,Total 1.2 MG/DL (0.20-1.00); Calcium 7.3 MG/DL (8.5-10.1); Osmolality,Calculated 348.1 MOS/KG (273-304); Potassium 4.5 MMOL/L (3.5-5.1); Total Protein 5.4 G/DL (6.4-8.2)
[2021-09-05 06:42] LABS: Lymphocytes 1 % (20-55); Metamyelocytes 1 %; Microcytosis 1+; Ovalocytes Slight; Segmented Neutrophils 95 % (50-85); Total Cells Counted 100
[2021-09-05 06:43] LABS: Platelet Estimate Decreased
[2021-09-05] MEDS: methylPREDNISolone SOD SUC 40 MG/1 ML VIAL IV SCH ×2 (09:30→20:20)
[2021-09-05] MEDS: DOCUSATE SODIUM 100 MG/10 ML UDCUP PO SCH (09:52)
[2021-09-05] MEDS: ASPIRIN CHEW 81 MG TABLET PO SCH (09:52)
[2021-09-05] MEDS: MULTIVITAMIN LIQUID (CENTRUM) 60 ML BOTTLE PO SCH (09:52)
[2021-09-05] MEDS: carBAMazepine 200 MG TABLET PO SCH ×2 (09:53→20:15)
[2021-09-05] MEDS: PANTOPRAZOLE 40 MG VIAL IV SCH (09:53)
[2021-09-05] MEDS: CETIRIZINE 10 MG TABLET PO SCH (09:53)
[2021-09-05] MEDS: INSULIN GLARGINE 100 UNIT/ML SUBCUT SCH (09:53)
[2021-09-05] MEDS: FERROUS SULFATE 325 MG TABLET PO SCH (09:53)
[2021-09-05] MEDS: CHLORHEXIDINE 0.12% ORAL RINSE 60 ML BOTTLE SWISH/SPIT SCH ×2 (09:53→21:01)
[2021-09-05 11:36] LABS: Hepatitis B Core IgM Quant 0.15 Index; Hepatitis B Surface Ag Quant 0.52 Index; Hepatitis B Surface Ag Result Non-Reactive (NonReactive); Hepatitis C Virus Ab Quant 0.07 Index; Hepatitis C Virus Ab Result Non-Reactive (NonReactive)
[2021-09-06] MEDS: ALBUTEROL/IPRATROPIUM 3 ML NEB RESP TX SCH ×4 (01:49→20:00)
[2021-09-06 04:08] LABS: Arterial Base Excess iSTAT -5 MMOL/L (-2.5-2.5); Arterial Bicarbonate iSTAT 21.1 MMOL/L (20-26); Arterial O2 Saturation iSTAT 100 % (95-100); Arterial PCO2 iSTAT 41 MM HG (35-48); Arterial PO2 iSTAT 227 MM HG (80-95); Arterial Total CO2 iSTAT 22 MMO/L (23-27); Arterial pH iSTAT 7.322 (7.35-7.45)
[2021-09-06] MEDS: INSULIN REGULAR 100 UNIT/ML SUBCUT SCH ×4 (04:25→16:49)
[2021-09-06 04:38] LABS: Basophils % 0.1 % (0.0-0.8); Hematocrit 29.2 VOL% (35.7-47.0); Immature Granulocytes Absolute 0.16 #; Lymphocytes # 0.1 10*3/uL (1.4-4.0); Lymphocytes % 0.9 % (21.3-54.2); Mean Corpuscular HGB Conc 30.8 GM/DL (32-36); Mean Corpuscular Volume 96.1 FL (87-102); Mean Platelet Volume 12.9 FL (9.6-12.0); Monocytes % 3.2 % (1.7-12.7); NRBC # 0.02 10*3/uL; Neutrophils % 94.8 % (38.7-73.9); Platelet Count 86 T/CUMM (130-400); Red Blood Count 3.04 MC/CUMM (3.8-5.5); Red Cell Distribution Width 18.9 % (9.3-17.3); White Blood Count 16.1 T/CUMM (4-12)
[2021-09-06 04:55] LABS: Calcium 7.6 MG/DL (8.5-10.1); Osmolality,Calculated 329.8 MOS/KG (273-304); Potassium 5.3 MMOL/L (3.5-5.1)
[2021-09-06 05:17] LABS: Band Neutrophils 1 % (0-10); Hypochromia Slight; Platelet Estimate Decreased; Segmented Neutrophils 95 % (50-85); Total Cells Counted 100
[2021-09-06] MEDS: DOCUSATE SODIUM 100 MG/10 ML UDCUP PO SCH (09:07)
[2021-09-06] MEDS: PANTOPRAZOLE 40 MG VIAL IV SCH (09:07)
[2021-09-06] MEDS: FERROUS SULFATE 325 MG TABLET PO SCH (09:07)
[2021-09-06] MEDS: ASPIRIN CHEW 81 MG TABLET PO SCH (09:07)
[2021-09-06] MEDS: CHLORHEXIDINE 0.12% ORAL RINSE 60 ML BOTTLE SWISH/SPIT SCH ×2 (09:07→20:26)
[2021-09-06] MEDS: MULTIVITAMIN LIQUID (CENTRUM) 60 ML BOTTLE PO SCH (09:07)
[2021-09-06] MEDS: methylPREDNISolone SOD SUC 40 MG/1 ML VIAL IV SCH ×2 (09:07→20:43)
[2021-09-06] MEDS: INSULIN GLARGINE 100 UNIT/ML SUBCUT SCH (09:07)
[2021-09-06] MEDS ORDERED: DOCUSATE SODIUM 100 MG/10 ML UDCUP PO PRN (09:08)
[2021-09-06] MEDS: carBAMazepine 200 MG TABLET PO SCH ×2 (09:08→20:42)
[2021-09-06] MEDS: CETIRIZINE 10 MG TABLET PO SCH (09:08)
[2021-09-06] MEDS ORDERED: MIDAZOLAM 2 MG/2 ML VIAL ONE (09:42)
[2021-09-06] MEDS ORDERED: MIDAZOLAM 2 MG/2 ML VIAL IV ONE (09:45)
[2021-09-06] MEDS ORDERED: carvediloL 3.125 MG TABLET PO SCH (21:00)
[2021-09-07] MEDS: ALBUTEROL/IPRATROPIUM 3 ML NEB RESP TX SCH ×4 (00:10→19:17)
[2021-09-07] MEDS: INSULIN REGULAR 100 UNIT/ML SUBCUT SCH ×5 (00:38→23:46)
[2021-09-07 03:46] LABS: Basophils % 0.1 % (0.0-0.8); Hemoglobin 8.2 GM/DL (12.0-16.0); Immature Granulocytes % 0.9 %; Immature Granulocytes Absolute 0.14 #; Lymphocytes # 0.1 10*3/uL (1.4-4.0); Lymphocytes % 0.6 % (21.3-54.2); Mean Corpuscular HGB Conc 31.5 GM/DL (32-36); Mean Corpuscular Volume 95.2 FL (87-102); Mean Platelet Volume 13.7 FL (9.6-12.0); Monocytes % 2.4 % (1.7-12.7); NRBC # 0.02 10*3/uL; Platelet Count 71 T/CUMM (130-400); Red Blood Count 2.73 MC/CUMM (3.8-5.5); Red Cell Distribution Width 18.6 % (9.3-17.3); White Blood Count 15.5 T/CUMM (4-12)
[2021-09-07 04:02] LABS: Lymphocytes 1 % (20-55); Segmented Neutrophils 96 % (50-85); Total Cells Counted 100
[2021-09-07 04:03] LABS: Anisocytosis 1+; Hypochromia Slight; Microcytosis 1+; Ovalocytes Few; Platelet Estimate Decreased
[2021-09-07 04:12] LABS: Arterial Base Excess iSTAT -7 MMOL/L (-2.5-2.5); Arterial Bicarbonate iSTAT 18.6 MMOL/L (20-26); Arterial O2 Saturation iSTAT 100 % (95-100); Arterial PCO2 iSTAT 35 MM HG (35-48); Arterial PO2 iSTAT 184 MM HG (80-95); Arterial Total CO2 iSTAT 20 MMO/L (23-27); Arterial pH iSTAT 7.339 (7.35-7.45)
[2021-09-07 04:24] LABS: Calcium 8.1 MG/DL (8.5-10.1); Osmolality,Calculated 331.2 MOS/KG (273-304); Potassium 5.6 MMOL/L (3.5-5.1)
[2021-09-07] MEDS ORDERED: SODIUM CHLORIDE 0.9% 1,000 ML IV PRN ×2 (08:36→08:39)
[2021-09-07] MEDS ORDERED: SODIUM ZIRCONIUM CYCLOSILICATE 10 GM PACK PO ONE (09:20)
[2021-09-07] MEDS: PANTOPRAZOLE 40 MG VIAL IV SCH (09:28)
[2021-09-07] MEDS: ASPIRIN CHEW 81 MG TABLET PO SCH (09:28)
[2021-09-07] MEDS: MULTIVITAMIN LIQUID (CENTRUM) 60 ML BOTTLE PO SCH (09:28)
[2021-09-07] MEDS: INSULIN GLARGINE 100 UNIT/ML SUBCUT SCH (09:28)
[2021-09-07] MEDS: CHLORHEXIDINE 0.12% ORAL RINSE 60 ML BOTTLE SWISH/SPIT SCH ×2 (09:28→20:57)
[2021-09-07] MEDS: FERROUS SULFATE 325 MG TABLET PO SCH (09:28)
[2021-09-07] MEDS: methylPREDNISolone SOD SUC 40 MG/1 ML VIAL IV SCH ×2 (09:29→20:56)
[2021-09-07] MEDS: carBAMazepine 200 MG TABLET PO SCH ×2 (09:29→20:57)
[2021-09-07] MEDS: CETIRIZINE 10 MG TABLET PO SCH (09:29)
[2021-09-07 17:51] VITALS: BP 102/62
[2021-09-08] MEDS: ALBUTEROL/IPRATROPIUM 3 ML NEB RESP TX SCH ×4 (00:07→18:26)
[2021-09-08 04:19] LABS: Basophils % 0.1 % (0.0-0.8); Hematocrit 32.2 VOL% (35.7-47.0); Immature Granulocytes % 1.2 %; Immature Granulocytes Absolute 0.24 #; Lymphocytes # 0.2 10*3/uL (1.4-4.0); Mean Corpuscular HGB Conc 32.3 GM/DL (32-36); Mean Platelet Volume 13.6 FL (9.6-12.0); Monocytes % 2.4 % (1.7-12.7); NRBC # 0.06 10*3/uL; Neutrophils % 95.3 % (38.7-73.9); Red Cell Distribution Width 18.5 % (9.3-17.3)
[2021-09-08 04:20] LABS: ABG Base Excess -10.3 MMOL/L (-2.5-2.5); ABG HCO3 16.3 MMOL/L (20-26); ABG Oxygen Saturation 98.7 % (95-100); ABG PCO2 31.4 MM HG (35-48); ABG PH 7.295 (7.35-7.45)
[2021-09-08 04:25] LABS: Hemoglobin 10.4 GM/DL (12.0-16.0); Platelet Count 101 T/CUMM (130-400); White Blood Count 20.4 T/CUMM (4-12)
[2021-09-08 04:41] LABS: Lymphocytes 1 % (20-55); Microcytosis 1+; Segmented Neutrophils 98 % (50-85); Total Cells Counted 100
[2021-09-08 04:42] LABS: Ovalocytes Few; Platelet Estimate Decreased
[2021-09-08 05:32] LABS: Osmolality,Calculated 336.4 MOS/KG (273-304)
[2021-09-08 05:39] LABS: Potassium 6.2 MMOL/L (3.5-5.1)
[2021-09-08] MEDS: INSULIN REGULAR 100 UNIT/ML SUBCUT SCH ×4 (06:16→23:28)
[2021-09-08] MEDS: ASPIRIN CHEW 81 MG TABLET PO SCH (09:45)
[2021-09-08] MEDS: carBAMazepine 200 MG TABLET PO SCH ×2 (09:45→21:04)
[2021-09-08] MEDS: FERROUS SULFATE 325 MG TABLET PO SCH (09:45)
[2021-09-08] MEDS: CHLORHEXIDINE 0.12% ORAL RINSE 60 ML BOTTLE SWISH/SPIT SCH ×2 (09:47→21:04)
[2021-09-08] MEDS: MULTIVITAMIN LIQUID (CENTRUM) 60 ML BOTTLE PO SCH (09:47)
[2021-09-08] MEDS: INSULIN GLARGINE 100 UNIT/ML SUBCUT SCH (09:47)
[2021-09-08] MEDS: PANTOPRAZOLE 40 MG VIAL IV SCH (09:48)
[2021-09-08] MEDS: CETIRIZINE 10 MG TABLET PO SCH (09:50)
[2021-09-08] MEDS: methylPREDNISolone SOD SUC 40 MG/1 ML VIAL IV SCH ×2 (09:50→21:03)
[2021-09-08] MEDS ORDERED: HEPARIN 10,000 UNIT/10 ML VIAL IV SCH (11:00)
[2021-09-09] MEDS: ALBUTEROL/IPRATROPIUM 3 ML NEB RESP TX SCH ×3 (00:07→13:43)
[2021-09-09 04:09] LABS: Basophils % 0.1 % (0.0-0.8); Hemoglobin 9.7 GM/DL (12.0-16.0); Immature Granulocytes Absolute 0.17 #; Lymphocytes # 0.1 10*3/uL (1.4-4.0); Lymphocytes % 0.8 % (21.3-54.2); Mean Corpuscular HGB Conc 32.3 GM/DL (32-36); Mean Corpuscular Volume 90.6 FL (87-102); Mean Platelet Volume 12.8 FL (9.6-12.0); Monocytes % 2.6 % (1.7-12.7); NRBC # 0.03 10*3/uL; Neutrophils % 95.5 % (38.7-73.9); Platelet Count 86 T/CUMM (130-400); Red Blood Count 3.31 MC/CUMM (3.8-5.5); Red Cell Distribution Width 18.7 % (9.3-17.3); White Blood Count 16.4 T/CUMM (4-12)
[2021-09-09 04:23] LABS: Albumin 1.8 G/DL (3.4-5.0); Bilirubin,Total 0.6 MG/DL (0.20-1.00); Osmolality,Calculated 327.7 MOS/KG (273-304); Potassium 5.9 MMOL/L (3.5-5.1); Total Protein 5.7 G/DL (6.4-8.2)
[2021-09-09 04:30] LABS: Osmolality,Calculated 326.5 MOS/KG (273-304); Potassium 5.9 MMOL/L (3.5-5.1)
[2021-09-09 04:31] LABS: Lymphocytes 1 % (20-55); Nucleated Red Blood Cells 1 (0-5); Segmented Neutrophils 97 % (50-85); Total Cells Counted 100
[2021-09-09 04:32] LABS: Hypochromia 1+; Microcytosis 1+; Platelet Estimate Decreased
[2021-09-09 04:41] LABS: Arterial Base Excess iSTAT -8 MMOL/L (-2.5-2.5); Arterial Bicarbonate iSTAT 16.7 MMOL/L (20-26); Arterial O2 Saturation iSTAT 99 % (95-100); Arterial PCO2 iSTAT 30 MM HG (35-48); Arterial PO2 iSTAT 153 MM HG (80-95); Arterial Total CO2 iSTAT 18 MMO/L (23-27); Arterial pH iSTAT 7.352 (7.35-7.45)
[2021-09-09] MEDS: INSULIN REGULAR 100 UNIT/ML SUBCUT SCH ×2 (06:14→12:16)
[2021-09-09] MEDS: methylPREDNISolone SOD SUC 40 MG/1 ML VIAL IV SCH (08:35)
[2021-09-09] MEDS: MORPHINE 4 MG/1 ML VIAL IV PRN ×2 (08:37→12:17)
[2021-09-09] MEDS: PANTOPRAZOLE 40 MG VIAL IV SCH (08:37)
[2021-09-09] MEDS: carBAMazepine 200 MG TABLET PO SCH (08:37)
[2021-09-09] MEDS: INSULIN GLARGINE 100 UNIT/ML SUBCUT SCH (08:38)
[2021-09-09] MEDS: MULTIVITAMIN LIQUID (CENTRUM) 60 ML BOTTLE PO SCH (08:38)
[2021-09-09] MEDS: FERROUS SULFATE 325 MG TABLET PO SCH (08:38)
[2021-09-09] MEDS: CETIRIZINE 10 MG TABLET PO SCH (08:38)
[2021-09-09] MEDS: ASPIRIN CHEW 81 MG TABLET PO SCH (08:38)
[2021-09-09] MEDS: CHLORHEXIDINE 0.12% ORAL RINSE 60 ML BOTTLE SWISH/SPIT SCH (08:39)
[2021-09-09] MEDS: PHENYLEPHRINE DRIP 40 MG/250 ML PREMIX IV PRN (14:10)
[2021-09-09] MEDS ORDERED: MORPHINE 2 MG/1 ML SYRINGE IV PRN (14:18)
[2021-09-09] MEDS ORDERED: ALBUMIN 25% 25 GM/100 ML VIAL IV ONE (14:23)
== END 2021-09-09 14:44 | disposition expired | DRG 3 ==
LOC: SUATTDRO 14:19 → N.TELES 14:19 → N.CVR 08-20 10:43 → N.ICU 08-21 09:58 → N.TELES 08-23 03:22 → N.ICU 08-23 03:23 → N.TELES 08-23 08:41 → N.ICU 08-26 12:22
PROVIDERS: ATTEND Internal Medicine